=== PATIENT | male | born 1970 | race Caucasian/White ===

== ENCOUNTER 2021-02-26 14:43 | Outpatient (CLI) | payer MEDICAID, SELFPAY ==
[2021-02-26 15:29] LABS: Hematocrit 41.5 % (42.0-52.0); Mean Corpuscular HGB Conc 33.7 g/dL (30.0-36.0); Mean Platelet Volume 11.4 fL (7.4-10.4); Platelet Count 281 10^3/cmm (130-400); Red Blood Count 4.37 10^6/uL (4.1-5.3); Red Cell Distribution Width 12.9 % (12.1-15.1); White Blood Count 9.3 10^3/uL (4.0-10.0)
[2021-02-26 17:02] LABS: Absolute Neutrophil 6.1 10^3/cmm (1.4-6.5); Absolute Segmented Neutrophil 6.1 10/cmm (1.6-7.1); Eosinophils 1 %; Lymphocytes 24 %; Lymphocytes Absolute 2.6 10^3/cmm (1.2-3.4); Monocytes Absolute 0.5 10^3/cmm (0.1-0.6); Platelet Estimate Normal (Normal); Segmented Neutrophils 66 %; Total Cells Counted 100 (0-100)
== END 2021-02-26 14:44 | disposition home or self-care (01) ==
PROVIDERS: Visit Provider Nurse Practitioner
DX: R53.1 Weakness (principal); Z20.822 Contact with and (suspected) exposure to COVID-19
CPT/HCPCS: 36415; 85007; 85027; 87635

== ENCOUNTER 2023-04-17 11:25 | Emergency (ER) | payer SELFPAY ==
--- NOTE | 2023-04-17 11:31 | XRR_ITS ---
PROCEDURE INFORMATION: Exam: XR Right Knee Exam date and time: 04/17/2023 11:53 AM Age: 53 years old Clinical indication: Injury or trauma; Fall; Blunt trauma; Knee; Right TECHNIQUE: Imaging protocol: Radiologic exam of the right knee. Views: 3 views. COMPARISON: No relevant prior studies available. FINDINGS: Bones/joints: Normal. Soft tissues: Normal. XR/XR knee RT 3V* [id number] IMPRESSION: No acute findings.
--- NOTE | 2023-04-17 11:31 | CTR_ITS ---
PROCEDURE INFORMATION: Exam: CT Maxillofacial Without Contrast Exam date and time: 04/17/2023 12:12 PM Age: 53 years old Clinical indication: Injury or trauma; Fall; Blunt trauma (contusions or hematomas); Maxilla and lip/oral cavity; Both upper and lower TECHNIQUE: Imaging protocol: Computed tomography of the face without contrast. Radiation optimization: All CT scans at this facility use at least one of these dose optimization techniques: automated exposure control; mA and/or kV adjustment per patient size (includes targeted exams where dose is matched to clinical indication); or iterative reconstruction. REPORTING DATA: Count of CT and Cardiac NM exams in prior 12 months: This patient has received 0 known CTs and 0 known cardiac nuclear medicine studies in the 12 months prior to the current study. COMPARISON: No relevant prior studies available. RADIATION DOSE METRICS: Total DLP (mGy-cm): 623.98 FINDINGS: Orbital cavities: Orbits are normal. Globes are unremarkable. Bones/joints: Rightward deviation and a spur of the osseous nasal septum. Paranasal sinuses: Minimal qusm-[id number]-right maxillary sinus mucosal thickening. No air-fluid levels. Soft tissues: Soft tissue swelling at the anterior pre maxillary and pre mandibular soft tissues with focal air-filled defect at the left anterior pre mandibular soft tissues. Dental: Multiple bilateral carious and injured teeth notable for fractured tooth fragment at the level of the right maxillary central incisor. Multiple periapical lucencies. CT/CT facial bones wo con* [id number] IMPRESSION: Anterior mouth/lip traumatic soft tissue swelling with multiple bilateral carious and injured teeth with angulated fractured tooth fragment at the level of the right maxillary central incisor. Uncertain if multiple periapical lucencies are related to chronic dental disease or recent trauma.
[2023-04-17 11:32] VITALS: BP 125/85; PULSE 68; RESP 22; O2SAT 100; BMI 23.2
[2023-04-17 11:41] VITALS: BP 125/85; PULSE 67; RESP 25; O2SAT 100
[2023-04-17] MEDS: HYDROcodone-acetaminophen 5-325 mg Tablet 1 TAB PO (11:47)
[2023-04-17] MEDS: tetanus-dipt-pertussis 0.5 mL SDV IM (11:48)
[2023-04-17] MEDS: amoxicillin-clav 875-125 mg Tablet 1 TAB PO (11:48)
--- NOTE | 2023-04-17 13:11 | W.ED.DENTAL ---
HPI - Dental/Oral General: Chief complaint: Dental/Oral Stated complaint: tooth in lip Time Seen by Provider: 04/17/23 11:31 Source: patient Mode of arrival: ambulatory History of Present Illness: 53-year-old male presents emergency room after a fall. He did fall and tripped and jerez while carrying a saw he impaled his right frontal incisor into his upper lip. He is unsure of his last tetanus shot he denies any other injury. MD Complaint: tooth pain Onset (ago): minute(s) Duration: constant Relieving factors: nothing Exacerbating factors: nothing Context: history of dental caries and trauma (mechanism) Associated symptoms: Denies ear or mastoid pain Treatment prior to arrival: none Review of Systems ENMT: Denies: throat pain or ear or mastoid pain Card: Denies: chest pain, edema or dyspnea on exertion Resp: Denies: dyspnea GI: Denies: abdominal pain, nausea or vomiting PFSH ED PFSH: Social History Smoking and tobacco status: current every day smoker cigarettes Packs smoked per day: 1 Alcohol intake: current Alcohol intake frequency: 3 or more drinks per day Substance/Drug Use: current Substance/Drug use frequency: daily Physical Exam Const: ORIENTATION/CONSCIOUSNESS: Yes awake HENMT: COMMON NORMALS: normocephalic, atraumatic and hearing grossly normal bilaterally HEAD & SCALP: normocephalic and atraumatic OTHER: Right frontal incisors impaled on the lip through the mucosa it exited and then retracted back again through the red mucosa of the lip. Scant bleeding. Was able to manually disimpact the tooth from the lip the tooth is still loosely seated in the maxilla. Dilatation is poor. No active bleeding after removing the tooth from the lip. Resp: COMMON NORMALS: normal respiratory effort, No retractions, No use of accessory muscles and clear to auscultation bilaterally AUSCULTATION: clear to auscultation bilaterally Cardio: COMMON NORMALS: regular rate, regular rhythm and No murmurs present (Cardio) RATE: regular rate RHYTHM: regular rhythm GI: COMMON NORMALS: Soft to palpation and No hepatosplenomegaly present AUSCULTATION: Yes normoactive bowel sounds PALPATION: Yes Soft to palpation, No Tenderness to palpation present (GI), No Guarding due to palpation present (GI) and Yes No hepatosplenomegaly present Extremity: COMMON NORMALS: normal to inspection, capillary refill normal, no clubbing, cyanosis or edema, no calf tenderness and no pedal edema Skin: COMMON NORMALS: no rashes or lesions noted GENERAL SKIN EXAM: no rashes or lesions noted Course Vital Signs: Vital signs: Vital Signs Pulse Rate 67 04/17/23 11:41 Respiratory Rate 25 H 04/17/23 11:41 Blood Pressure 125/85 04/17/23 11:41 Pulse Oximetry 100 04/17/23 11:41 Oxygen Delivery Me thod Room Air 04/17/23 11:41 MDM - Dental/Oral Medical Decision Making Patient's tetanus updated is given a dose of Augmentin and also hydrocodone. Plan to discharge patient home on Augmentin while I was attending to another patient he decided to leave AMA. Nurses had tried to dissuade him from leaving where he was simply waiting on read on the facial CT at that point the plan was to discharge him home on at least 5 to 7-day oral Augmentin leave the wound open to drain. Patient preferred to leave AMA nursing staff was unable to convince him to stay and advised him he could return if needed further evaluation and would like further evaluation. We did try to make contact with him and wanted to call in a prescription for Augmentin [phone] twice daily for 5 at least 5 days. Numbers on file were not adequate we did leave message with his mother to have him call back if she is able to get a hold of him. If he does call back we will call in the Augmentin. Medical Records I reviewed the patient's medical records. Lab Data I reviewed the patient's lab results. Radiology Impressions Face CT 04/17/23 11:31 IMPRESSION: Anterior mouth/lip traumatic soft tissue swelling with multiple bilateral carious and injured teeth with angulated fractured tooth fragment at the level of the right maxillary central incisor. Uncertain if multiple periapical lucencies are related to chronic dental disease or recent trauma. Knee X-Ray 04/17/23 11:31 IMPRESSION: No acute findings. 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
--- NOTE | 2023-04-17 13:12 | PC.NURSE ---
Attempted to call pt in order to call in prescription of abx per MD. Number on file disconnected. Spoke with grandmother who stated she was unable to contact him. Requested if she hears from him to have him call the ER> Md aware.
== END 2023-04-17 12:52 | disposition left against medical advice (07) ==
PROVIDERS: Emergency Provider Family Medicine
DX: S01.511A Laceration without foreign body of lip, initial encounter (principal); S02.5XXA Fracture of tooth (traumatic), initial encounter for closed fracture; Z53.21 Procedure and treatment not carried out due to patient leaving prior to being seen by health care provider; F17.210 Nicotine dependence, cigarettes, uncomplicated; W27.0XXA Contact with workbench tool, initial encounter; Z23 Encounter for immunization
CPT/HCPCS: 70486; 73562; 90471; 90715; 99284

== ENCOUNTER 2023-11-26 16:28 | Emergency (ER) | payer OTHER, SELFPAY ==
[2023-11-26] VITALS (8 sets, daily range): BP systolic 120–209; BP diastolic 90–134; PULSE 48–76; RESP 16; TEMP 36.6; O2SAT 92–100; BMI 24.7
--- NOTE | 2023-11-26 17:42 | XRR_ITS ---
PROCEDURE INFORMATION: Exam: XR Chest Exam date and time: 11/26/2023 6:55 PM Age: 53 years old Clinical indication: Chest wall pain; Additional info: Le edema TECHNIQUE: Imaging protocol: Radiologic exam of the chest. Views: 1 view. COMPARISON: No relevant prior studies available. FINDINGS: Lungs: See Pleural spaces finding. Pleural spaces: Small right-sided pleural effusion. No focal consolidation. Heart/Mediastinum: Unremarkable. No cardiomegaly. Bones/joints: Unremarkable. XR/XR chest 1V portable [id number] IMPRESSION: Small right-sided pleural effusion. No focal consolidation.
[2023-11-26 19:51] LABS: Basophils % 0.5 %; Eosinophils # 0.2 10^3/uL (0.0-0.8); Eosinophils % 2.2 %; Hematocrit 41.2 % (37-53); Lymphocytes # 1.4 10^3/uL (0.8-4.8); Lymphocytes % 17.1 %; Mean Corpuscular HGB Conc 32.5 g/dL (30-55); Mean Corpuscular Volume 95.4 fl (82-101); Monocytes # 0.9 10^3/uL (0.2-0.9); Monocytes % 10.4 %; Neutrophils % 69.6 %; Nucleated Red Blood Cells % 0 %; Platelet Count 220 10^3/cmm (157-399); Red Blood Count 4.32 10^6/uL (3.85-5.65); Red Cell Distribution Width 12.6 % (12.1-15.1); White Blood Count 8.19 10^3/uL (3.29-11.43)
[2023-11-26 20:19] LABS: Alanine Aminotransferase 13 U/L (0-41); Albumin Level 3.9 g/dL (3.5-5.2); Alkaline Phosphatase 86 U/L (40-130); Anion Gap 15.4 (5-19); Aspartate Amino Transferase 28 U/L (0-40); Blood Urea Nitrogen 34 mg/dL (6-20); Calcium 8.7 mg/dL (8.5-10.5); Carbon Dioxide 24 mmol/L (22-29); Chloride 107 mmol/L (98-107); Creatinine Clr Calc Pharmacy 34.1422; Globulin 3.6 g/dL (1.3-4.6); Glomerular Filtration Rate 22.9 mL/min (90-130); Glucose 104 mg/dL (65-115); NT Pro B Type Natriuretic Pept 889 pg/mL (0-125); Osmolality Calculated 304 mOsm/kg (285-295); Potassium 3.4 mmol/L (3.5-5.1); Sodium 143 mmol/L (136-145); Total Bilirubin 0.3 mg/dL (0.15-1.2); Total Protein 7.5 g/dL (6.6-8.7)
[2023-11-26 20:34] LABS: Bacteria Urine TRACE /hpf; Bilirubin Urine Neg (Negative); Blood Urine Neg (Negative); Glucose Urine UA Norm (Normal); Ketones Urine Negative (Negative); Leukocyte Esterase Urine Negative (Negative); Nitrate Urine Negative (Negative); Protein Urine Neg (Negative); RBC Urine 0-4 /hpf (0-2); Squamous Epithelial Cell Urine 0-4 /hpf (0-5); Urine Appearance Clear (CLEAR); Urine Color Yellow (Yellow); Urobilinogen Urine Neg (Negative); WBC Urine 0-4 /hpf (0-5); pH Urine 5 (5-7)
--- NOTE | 2023-11-26 21:03 | ED_ITS ---
HPI - Abdominal Pain 2 General: Chief Complaint: Abdominal Pain Stated Complaint: legs swelling Time Seen by Provider: 11/26/23 20:44 History of Present Illness: Patient presents to the ER with complaints of lower abdominal pain, urinary retention type symptoms except when he sleeps then he is incontinent. And improving bilateral leg swelling. Review of Systems 2 General: Reports: 10 or more systems reviewed and unremarkable except in HPI and below PFSH ED 2 PFSH: Social History Smoking and tobacco/nicotine status: current every day tobacco/nicotine user cigarettes Packs smoked per day: 1 Alcohol intake: current Alcohol intake frequency: 3 or more drinks per day Substance/Drug Use: current Substance/Drug use frequency: daily Physical Exam 2 Const: COMMON NORMALS: no acute distress, average body habitus, patient oriented x3, no limitations, healthy appearing, alert and well nourished HENMT: COMMON NORMALS: normocephalic, atraumatic, hearing grossly normal bilaterally, external ears normal, Normal external nose present, moist oral mucous membranes and oropharynx normal HEAD & SCALP: normocephalic and atraumatic NOSE: Normal external nose present EXTERNAL EAR: Yes external ears normal Neck/C-Spine: COMMON NORMALS: no JVD Chest: COMMONS NORMALS: normal inspection of the chest and normal palpation of entire chest wall Resp: COMMON NORMALS: normal respiratory effort, No retractions, No use of accessory muscles and clear to auscultation bilaterally AUSCULTATION: clear to auscultation bilaterally Cardio: COMMON NORMALS: no JVD, regular rate, regular rhythm, S1 normal heart sound present, S2 normal heart sound present, No gallops present (Cardio), No clicks present (Cardio), No murmurs present (Cardio) and No rub (Cardio) R ATE: regular rate RHYTHM: regular rhythm HEART SOUNDS: S1 normal heart sound present and S2 normal heart sound present GI: COMMON NORMALS: Normal to inspection, nondistended, normoactive bowel sounds present, Soft to palpation, No hepatosplenomegaly present and no masses; negative for non-tender (Tender to palpate suprapubic region) PALPATION: Yes Soft to palpation and Yes No hepatosplenomegaly present Neuro: COMMON NORMALS: patient oriented x3 SENSORIUM/ORIENTATION: Yes alert Course 2 Vital Signs: Vital signs: Vital Signs Temperature 98 F 11/26/23 18:36 Pulse Rate 52 L 11/26/23 22:00 Respiratory Rate 16 11/26/23 22:00 Blood Pressure 200/134 11/26/23 22:00 Pulse Oximetry 99 11/26/23 22:00 Oxygen Delivery Me thod Room Air 11/26/23 22:00 MDM - Abdominal Pain Medical Decision Making Bladder scan revealed approximately 1000 cc postvoid residual Navas catheter was placed and eventually 3000 mL of urine came out. CBC was unremarkable, CMP showed elevated BUN/creatinine of 34 and 2.9, chest x-ray showed small right- sided pleural effusion, noncontrasted CT scan of the abdomen pelvis showed bilateral hydro nephrosis and hydroureter down to the bladder Differential Diagnosis Likely abdominal pain; Unlikely acute appendicitis, calculus of kidney, constipation, diverticulitis, endometriosis, gastroenteritis, pancreatitis or small bowel obstruction Medical Records I reviewed the patient's medical records. Lab Data I reviewed the patient's lab results. 11/26/23 19:42 11/26/23 19:42 Labs/Radiology: Radiology Impressions Chest X-Ray 11/26/23 17:42 IMPRESSION: Small right-sided pleural effusion. No focal consolidation. Abdomen/Pelvis CT 11/26/23 21:03 IMPRESSION: 1. Multiple calcified stones in the gallbladder. There is a Navas catheter in the bladder. The bladder is decompressed. There is circumferential bladder wall thickening. 2. Bilateral hydronephrosis and hydroureter down to the level of the bladder. 3. No bowel obstruction or inflammatory process associated with the bowel. 4. No free air or significant free fluid in the abdomen or pelvis. 5. No evidence of appendicitis. Laboratory Results WBC 8.19 10^3/uL (3.29-11.43) 11/26/23 19:42 RBC 4.32 10^6/uL (3.85-5.65) 11/26/23 19:42 Hgb 13.40 g/dL (11.27-16.99) 11/26/23 19: Hct 41.2 % (37-53) 11/26/23 19: MCV 95.4 fl (82-101) 11/26/23 19: MCH 31.0 pg (27-33) 11/26/23 19: MCHC 32.5 g/dL (30-55) 11/26/23 19:42 RDW 12.6 % (12.1-15.1) 11/26/23 19:42 Plt Count 220 10^3/cmm (157-399) 11/26/23 19:42 MPV 11.0 fL (7.4-10.4) H 11/26/23 19:42 Neut % (Auto) 69.6 % 11/26/23 19:42 Lymph % (Auto) 17.1 % 11/26/23 19:42 [place] % (Auto) 10.4 % 11/26/23 19:42 Eos % (Auto) 2.2 % 11/26/23 19:42 Baso % (Auto) 0.5 % 11/26/23 19:42 Neut # (Auto) 5.70 10^3/uL (1.8-7.7) 11/26/23 19:42 Lymph # (Auto) 1.4 10^3/uL (0.8-4.8) 11/26/23 19:42 [place] # (Auto) 0.9 10^3/uL (0.2-0.9) 11/26/23 19:42 Eos # (Auto) 0.2 10^3/uL (0.0-0.8) 11/26/23 19:42 Baso # (Auto) 0.0 10^3/uL (0.0-0.1) 11/26/23 19:42 Nucleated RBC % (auto) 0 % 11/26/23 19:42 Nucleated RBCs # 0.0 /100WBC 11/26/23 19:42 Sodium 143 mmol/L (136-145) 11/26/23 19:42 Potassium 3.4 mmol/L (3.5-5.1) L 11/26/23 19:42 Chloride 107 mmol/L (98-107) 11/26/23 19:42 Carbon Dioxide 24 mmol/L (22-29) 11/26/23 19:42 Anion Gap 15.4 (5-19) 11/26/23 19:42 BUN 34 mg/dL (6-20) H 11/26/23 19:42 Creatinine 2.9 mg/dL (0.7-1.2) H 11/26/23 19:42 GFR Calculation 22.9 mL/min (90-130) L 11/26/23 19:42 Glucose 104 mg/dL (65-115) 11/26/23 19:42 Calculated Osmolality 304 mOsm/kg (285-295) H 11/26/23 19:42 Calcium 8.7 mg/dL (8.5-10.5) 11/26/23 19:42 Total Bilirubin 0.3 mg/dL (0.15-1.2) 11/26/23 19:42 AST 28 U/L (0-40) 11/26/23 19:42 ALT 13 U/L (0-41) 11/26/23 19:42 Alkaline Phosphatase 86 U/L (40-130) 11/26/23 19:42 NT-Pro-B Natriuret Pep 889 pg/mL (0-125) H 11/26/23 19:42 Total Protein 7.5 g/dL (6.6-8.7) 11/26/23 19:42 Albumin 3.9 g/dL (3.5-5.2) 11/26/23 19:42 Globulin 3.6 g/dL (1.3-4.6) 11/26/23 19:42 Urine Color Yellow (Yellow) 11/26/23 18:50 Urine Appearance Clear (CLEAR) 11/26/23 18:50 Urine pH 5 (5-7) 11/26/23 18:50 Ur Specific [place] 1.000 (1.005-1.030) L 11/26/23 18:50 Urine Protein Neg (Negative) 11/26/23 18:50 Urine Glucose (UA) Norm (Normal) 11/26/23 18:50 Urine Ketones Negative (Negative) 11/26/23 18:50 Urine Blood Neg (Negative) 11/26/23 18:50 Urine Nitrate Negative (Negative) 11/26/23 18:50 Urine Bilirubin Neg (Negative) 11/26/23 18:50 Urine Urobilinogen Neg mg/dL (Negative) 11/26/23 18:50 Ur Leukocyte Esterase Negative (Negative) 11/26/23 18:50 Urine RBC 0-4 /hpf (0-2) H 11/26/23 18:50 Urine WBC 0-4 /hpf (0-5) H 11/26/23 18:50 Ur Squamous Epith Cells 0-4 /hpf (0-5) H 11/26/23 18:50 Amorphous Sediment Not Reportable 11/26/23 18:50 Urine Bacteria Trace /hpf (NONE) 11/26/23 18:50 All radiology interpretation(s) finalized by discharge Discharge Plan Discharge Patient Disposition: Home Clinical Impression: Acute urinary retention, Acute kidney injury Hypertension Qualifiers: Hypertension type: unspecified Qualified Code(s): I10 - Essential (primary) hypertension Condition: Stable Prescriptions: No Action No Known Home Medications Discharge Orders: Discharge ED (Routine); Ordered 11/26/23 Ordered By: Reuben Sam Patient Instructions: Navas Catheter Care, Acute Kidney Injury (DC), Urinary Retention in Men (ED), Hypertension (ED) Activity Restrictions/Additional Instructions: Your evaluation in ER showed you have a lot of retained urine in your bladder. This is acute urinary retention. The Navas catheter will drain your bladder and let everything rest. The bladder has backed up into your kidneys and irritated your kidneys so kidneys are functioning at a normal level I do believe this will get better once we keep them drain for several days. But you will need follow- up in 2 to 3 days for catheter removal as well as recheck on your lab work. 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
--- NOTE | 2023-11-26 21:03 | CTR_ITS ---
PROCEDURE INFORMATION: Exam: CT Abdomen And Pelvis Without Contrast Exam date and time: 11/26/2023 9:44 PM Age: 53 years old Clinical indication: Other: Urinary retention; Additional info: Urinary retention, acutely elevated CR, abd pain TECHNIQUE: Imaging protocol: Computed tomography of the abdomen and pelvis without contrast. Radiation optimization: All CT scans at this facility use at least one of these dose optimization techniques: automated exposure control; mA and/or kV adjustment per patient size (includes targeted exams where dose is matched to clinical indication); or iterative reconstruction. COMPARISON: CR XR chest 1V portable [id number] 11/26/2023 6:55 PM RADIATION DOSE METRICS: Total DLP (mGy-cm): 480.4 FINDINGS: Liver: Normal. No mass. Gallbladder and bile ducts: Multiple calcified stones in the gallbladder. There is a Navas catheter in the bladder. The bladder is decompressed. There is circumferential bladder wall thickening. Pancreas: Normal. No ductal dilation. Spleen: Normal. No splenomegaly. Adrenal glands: Normal. No mass. Kidneys and ureters: See Urinary bladder finding. Stomach and bowel: Unremarkable. No obstruction. No mucosal thickening. Appendix: No evidence of appendicitis. Intraperitoneal space: Unremarkable. No free air. No significant fluid collection. Vasculature: Unremarkable. No abdominal aortic aneurysm. Lymph nodes: Unremarkable. No enlarged lymph nodes. Urinary bladder: Bilateral hydronephrosis and hydroureter down to the level of the bladder. Reproductive: Unremarkable as visualized. Bones/joints: Unremarkable. No acute fracture. Soft tissues: Unremarkable. CT/CT abdomen pelvis wo con [id number] IMPRESSION: 1. Multiple calcified stones in the gallbladder. There is a Navas catheter in the bladder. The bladder is decompressed. There is circumferential bladder wall thickening. 2. Bilateral hydronephrosis and hydroureter down to the level of the bladder. 3. No bowel obstruction or inflammatory process associated with the bowel. 4. No free air or significant free fluid in the abdomen or pelvis. 5. No evidence of appendicitis.
[2023-11-26] MEDS: cloNIDine 0.1 mg Tablet 0.100000000000000006 MG PO (21:15)
[2023-11-26] MEDS: HYDROcodone-acetaminophen 5-325 mg Tablet 1 TAB PO (22:18)
[2023-11-26] MEDS: cyclobenzaprine 10 mg Tablet 5 MG PO (22:18)
[2023-11-26] MEDS: cloNIDine 0.1 mg Tablet 0.200000000000000011 MG PO (23:00)
== END 2023-11-27 00:09 | disposition home or self-care (01) ==
PROVIDERS: Emergency Medicine; Physician Assistant; Emergency Provider Emergency Medicine
DX: R33.9 Retention of urine, unspecified (principal); N17.9 Acute kidney failure, unspecified; I10 Essential (primary) hypertension; F17.210 Nicotine dependence, cigarettes, uncomplicated
CPT/HCPCS: 36415; 51702; 51798; 71045; 74176; 80053; 81001; 83880; 85025; 99284

== ENCOUNTER → 2023-12-01 11:15 | Outpatient (BNVA) | payer OTHER, SELFPAY | PROVIDERS: Visit Provider Family Medicine Adult Medicine | DX: R33.8 Other retention of urine (principal); N17.9 Acute kidney failure, unspecified; I10 Essential (primary) hypertension; N40.1 Benign prostatic hyperplasia with lower urinary tract symptoms; N13.8 Other obstructive and reflux uropathy | CPT/HCPCS: 80053; 84443; G0103 ==

== ENCOUNTER → 2024-06-17 15:52 | Outpatient (BNVA) | payer OTHER, SELFPAY | PROVIDERS: Visit Provider Emergency Medicine | DX: R32 Unspecified urinary incontinence (principal); R39.9 Unspecified symptoms and signs involving the genitourinary system | CPT/HCPCS: 81000; 87086 ==

== ENCOUNTER 2024-11-10 18:10 | Emergency (ER) | payer OTHER, SELFPAY ==
[2024-11-10 18:20] VITALS: BP 172/88; PULSE 74; RESP 16; TEMP 36.4; O2SAT 100; BMI 24.4
--- NOTE | 2024-11-10 18:30 | CTR_ITS ---
PROCEDURE INFORMATION: Exam: CT Abdomen And Pelvis Without Contrast Exam date and time: 11/10/2024 6:58 PM Age: 54 years old Clinical indication: Abnormal findings; Abnormal lab test; Abnormal kidney function lab tests; Other: Urinary retention; C/O of dysuria with retention. Acute renal failure with creat of 6.4. TECHNIQUE: Imaging protocol: Computed tomography of the abdomen and pelvis without contrast. Radiation optimization: All CT scans at this facility use at least one of these dose optimization techniques: automated exposure control; mA and/or kV adjustment per patient size (includes targeted exams where dose is matched to clinical indication); or iterative reconstruction. COMPARISON: CT abdomen pelvis wo con [id number] 11/26/2023 9:44 PM RADIATION DOSE METRICS: Total DLP (mGy-cm): 473.25 FINDINGS: Lungs: Stable right posterior lower lobe scarring. Heart: Heart size is within normal limits. There is no pericardial effusion or pericardial thickening. Liver: The liver is normal. No hepatic masses are identified. Gallbladder and biliary ducts: Gallstones are identified within the gallbladder. There is no gallbladder wall thickening or pericholecystic inflammatory change. Pancreas: The pancreas is normal. Spleen: The spleen is normal. Adrenal glands: The adrenal glands are normal. Kidneys and ureters: Severe bilateral hydroureteronephrosis. Stomach and bowel: Mild colonic diverticulosis without diverticulitis. There is no large or small bowel obstruction. There is no evidence of bowel wall thickening. Appendix: A normal appendix is identified. Intraperitoneal space: No inflammatory changes are identified. There is no free fluid or fluid collection seen. There is no pneumoperitoneum. Vasculature: Atherosclerotic calcifications of the aorta are present. No aneurysm is identified. Lymph nodes: No enlarged lymph nodes are identified. Urinary bladder: Markedly distended urinary bladder with large bladder diverticula. Diffuse bladder wall thickening which appears to be related to smooth muscle hypertrophy. Reproductive: Moderate prostatomegaly. Bones/joints: No acute osseous abnormalities are seen. Soft tissues: There is a small left inguinal hernia containing only fat. There is a moderate periumbilical hernia containing only fat. CT/CT kidney stone [id number] IMPRESSION: 1. Severe bilateral hydroureteronephrosis which appears to be secondary to marked distension of the urinary bladder. 2. Other nonemergent findings above.
--- NOTE | 2024-11-10 18:30 | ED_ITS ---
HPI - Recheck/Abnormal Lab/Rx 2 General: Chief Complaint: Recheck/Abnormal Lab/Rx Stated Complaint: Dr Jamison refural Kidney Failure Time Seen by Provider: 11/10/24 18:27 Source: patient Mode of arrival: ambulatory Limitations: no limitations History of Present Illness: 54-year-old male he states he has a hist ory of enlarged prostate states been out of his Flomax for the last weeks he has been having a hard time urinating states he went to see his PCP this morning to get her refill states and ran labs and then told him that his creatinine was elevated, the ER he states he has had no symptoms he has been feeling fine states has been able to urinate since he started his Flomax back today. Has no other complaints this time Related Data Previous Rx's ?Medication ?Instructions ?Recorded amlodipine 5 mg tablet 5 mg PO DAILY hypertension # 90 tabs 11/10/24 tamsulosin 0.4 mg capsule 0.4 mg PO DAILY #90 caps Allergies Allergy/AdvReac Type Severity Reaction Status Date / Time No Known Allergies Allergy Verified 11/10/24 18:24 Review of Systems 2 Const: Denies: fever(s), chills, body aches or change in appetite ENMT: Denies: throat pain or dental pain Card: Denies: chest pain Resp: Denies: dyspnea GI: Denies: abdominal pain, nausea, vomiting or diarrhea : Reports: difficulty urinating Musc: Denies: neck pain or back pain Skin/Breast: Denies: rash Neuro: Denies: headache(s) PFSH ED 2 PFSH: Medical History Bladder wall thickening seen on CT 12/[address] 2023 Nicotine dependence, cigarettes, with other nicotine-induced disorders declined LDCT 11.10.24 Acute kidney injury Creatinine was 2.9 with GFR of 22 on 11/26/2023 and had decreased to a creatinine of 1.3 with a GFR of 58 on 12/01/2023 Hypertension Acute urinary retention Urinary Navas placement with 3000 cc return on 11/26/2023 BPH w urinary obs/LUTS Surgical History No pertinent past surgical history Family History Father No problems noted. 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 Physical Exam 2 Const: COMMON NORMALS: no acute distress, patient oriented x3 and healthy appearing HENMT: COMMON NORMALS: normocephalic and atraumatic HEAD & SCALP: n ormocephalic and atraumatic Eye: COMMON NORMALS: conjunctivae normal CONJUNCTIVA: Yes conjunctivae normal Neck/C-Spine: COMMON NORMALS: full ROM and supple Chest: COMMONS NORMALS: normal inspection of the chest Resp: COMMON NORMALS: normal respiratory effort Cardio: COMMON NORMALS: regular rate, regular rhythm and No murmurs present (Cardio) RATE: regular rate RHYTHM: regular rhythm GI: COMMON NORMALS: Normal to inspection, nondistended, normoactive bowel sounds present, Soft to palpation, non-tender and no masses PALPATION: Yes Soft to palpation Extremity: COMMON NORMALS: normal to inspection and full ROM Neuro: COMMON NORMALS: patient oriented x3, moves all extremities and no focal motor deficits Psych: COMMON NORMALS: mental status grossly normal, Normal thought process present and cooperative THOUGHT PROCESS: Normal thought process present Skin: COMMON NORMALS: no rashes or lesions noted and no wounds GENERAL SKIN EXAM: no rashes or lesions noted Course 2 Vital Signs: Vital signs: Vital Signs Temperature 97.5 F L 11/10/24 18:20 Pulse Rate 74 11/10/24 18:20 Respiratory Rate 16 11/10/24 18:20 Blood Pressure 172/88 11/10/24 18:20 Pulse Oximetry 98 11/10/24 19:02 Oxygen Delivery Me thod Room Air 11/10/24 19:02 MDM - Recheck/Abnormal Lab/Rx Medical Decision Making Patient presents here with acute kidney injury likely from a urinary retention. Patient is adamant that he is urinating a lot since he started his Flomax hide highly recommended admission and a Navas patient refused he states he had Navas's in the past they cause dysuria and he does not want a Navas at this time he states he wants to continue his Flomax and see if that improves his urine output and his kidney function. I informed him he could going to for renal failure he understands the risk he did sign out AGAINST MEDICAL ADVICE I did inform if he changes his mind or worsens he is to return he understands and agrees Lab Data I reviewed the patient's lab results. 11/10/24 18:50 11/10/24 18:50 Radiology Impressions Abdomen/Pelvis CT 11/10/24 18:30 IMPRESSION: 1. Severe bilateral hydroureteronephrosis which appears to be secondary to marked distension of the urinary bladder. 2. Other nonemergent findings above. Laboratory Results WBC 7.46 10^3/uL (3.29-11.43) 11/10/24 18:50 RBC 3.21 10^6/uL (3.85-5.65) L 11/10/24 18:50 Hgb 9.40 g/dL (11.27-16.99) L 11/10/24 18:50 Hct 29.6 % (37-53) L 11/10/24 18:50 MCV 92.2 fl (82-101) 11/10/24 18:50 MCH 29.3 pg (27-33) 11/10/24 18:50 MCHC 31.8 g/dL (30-55) 11/10/24 18:50 RDW 14.0 % (12.1-15.1) 11/10/24 18:50 Plt Count 280 10^3/cmm (157-399) 11/10/24 18:50 MPV 10.8 fL (7.4-10.4) H 11/10/24 18:50 Neut % (Auto) 69.8 % 11/10/24 18:50 Lymph % (Auto) 18.9 % 11/10/24 18:50 [place] % (Auto) 8.2 % 11/10/24 18:50 Eos % (Auto) 2.1 % 11/10/24 18:50 Baso % (Auto) 0.7 % 11/10/24 18:50 Neut # (Auto) 5.21 10^3/uL (1.8-7.7) 11/10/24 18:50 Lymph # (Auto) 1.4 10^3/uL (0.8-4.8) 11/10/24 18:50 [place] # (Auto) 0.6 10^3/uL (0.2-0.9) 11/10/24 18:50 Eos # (Auto) 0.2 10^3/uL (0.0-0.8) 11/10/24 18:50 Baso # (Auto) 0.1 10^3/uL (0.0-0.1) 11/10/24 18:50 Nucleated RBC % (auto) 0 % 11/10/24 18:50 Nucleated RBCs # 0.0 /100WBC 11/10/24 18:50 Sodium 136 mmol/L (136-145) 11/10/24 18:50 Potassium 5.3 mmol/L (3.5-5.1) H 11/10/24 18:50 Chloride 107 mmol/L (98-107) 11/10/24 18:50 Carbon Dioxide 13 mmol/L (22-29) L 11/10/24 18:50 Anion Gap 21.3 (5-19) H 11/10/24 18:50 BUN 91 mg/dL (6-20) H* 11/10/24 18:50 Creatinine 6.2 mg/dL (0.7-1.2) H* 11/10/24 18:50 GFR Calculation 9.5 mL/min (90-130) L 11/10/24 18:50 Glucose 94 mg/dL (65-115) 11/10/24 18:50 Calculated Osmolality 310 mOsm/kg (285-295) H 11/10/24 18:50 Calcium 8.5 mg/dL (8.5-10.5) 11/10/24 18:50 Total Bilirubin 0.2 mg/dL (0.15-1.2) 11/10/24 18:50 AST 29 U/L (0-40) 11/10/24 18:50 ALT 16 U/L (0-41) 11/10/24 18:50 Alkaline Phosphatase 76 U/L (40-130) 11/10/24 18:50 Total Protein 7.1 g/dL (6.6-8.7) 11/10/24 18:50 Albumin 3.4 g/dL (3.5-5.2) L 11/10/24 18:50 Globulin 3.7 g/dL (1.3-4.6) 11/10/24 18:50 Lipase 88 U/L (13-60) H 11/10/24 18:50 All radiology interpretation(s) finalized by discharge Discharge Plan Discharge Patient Disposition: Left Against Medical Advice Clinical Impression: Acute kidney injury, Acute urinary retention Condition: Stable Prescriptions: No Action tamsulosin 0.4 mg capsule 0.4 mg PO DAILY Qty: 90 3RF amlodipine 5 mg tablet 5 mg PO DAILY Qty: 90 0RF Referrals: Kaylen Jamison MD [Primary Care Provider] - 4-7 days Discharge Diet: Advance as tolerated Discharge Activity: Resume usual activity Print Language: Mongolian Coding Level of Care Code ED Canceling And Cutting Control Clerk for Fili Rawls
[2024-11-10 19:02] VITALS: O2SAT 98
[2024-11-10] MEDS: sodium chloride 0.9% 1,000 ML 999 ML IV (19:02)
[2024-11-10 19:10] LABS: Basophils # 0.1 10^3/uL (0.0-0.1); Basophils % 0.7 %; Eosinophils # 0.2 10^3/uL (0.0-0.8); Eosinophils % 2.1 %; Hematocrit 29.6 % (37-53); Lymphocytes # 1.4 10^3/uL (0.8-4.8); Lymphocytes % 18.9 %; Mean Corpuscular HGB Conc 31.8 g/dL (30-55); Mean Corpuscular Hemoglobin 29.3 pg (27-33); Mean Corpuscular Volume 92.2 fl (82-101); Mean Platelet Volume 10.8 fL (7.4-10.4); Monocytes # 0.6 10^3/uL (0.2-0.9); Monocytes % 8.2 %; Neutrophils # 5.21 10^3/uL (1.8-7.7); Neutrophils % 69.8 %; Nucleated Red Blood Cells % 0 %; Platelet Count 280 10^3/cmm (157-399); Red Blood Count 3.21 10^6/uL (3.85-5.65); White Blood Count 7.46 10^3/uL (3.29-11.43)
--- NOTE | 2024-11-10 19:15 | PC.NURSE ---
When this nurse went to place a Navas catheter, patient refused, stating No, I will not have a Navas. That thing ruined my life. This nurse attempted to educate the patient on the reason and importance of catheter placement, however patient once again patient declined. Dr Barahona notified of patient's current refusal of catheter placement.
[2024-11-10 19:22] LABS: Alanine Aminotransferase 16 U/L (0-41); Albumin Level 3.4 g/dL (3.5-5.2); Alkaline Phosphatase 76 U/L (40-130); Calcium 8.5 mg/dL (8.5-10.5); Carbon Dioxide 13 mmol/L (22-29); Chloride 107 mmol/L (98-107); Creatinine Clr Calc Pharmacy 15.2617; Globulin 3.7 g/dL (1.3-4.6); Glomerular Filtration Rate 9.5 mL/min (90-130); Glucose 94 mg/dL (65-115); Lipase 88 U/L (13-60); Osmolality Calculated 310 mOsm/kg (285-295); Sodium 136 mmol/L (136-145); Total Bilirubin 0.2 mg/dL (0.15-1.2); Total Protein 7.1 g/dL (6.6-8.7)
[2024-11-10 19:25] LABS: Anion Gap 21.3 (5-19); Aspartate Amino Transferase 29 U/L (0-40); Potassium 5.3 mmol/L (3.5-5.1)
[2024-11-10 19:32] LABS: Blood Urea Nitrogen 91 mg/dL (6-20)
== END 2024-11-10 19:51 | disposition left against medical advice (07) ==
PROVIDERS: Emergency Provider Emergency Medicine; PCP Family Medicine
DX: R33.9 Retention of urine, unspecified (principal); N17.9 Acute kidney failure, unspecified; I10 Essential (primary) hypertension
CPT/HCPCS: 36415; 74176; 80053; 81000; 83690; 84443; 85025; 87086; 99284; G0103; J7030

== ENCOUNTER 2025-05-19 10:38 | Inpatient (IN) | payer OTHER, SELFPAY ==
[2025-05-19] VITALS (125 sets, daily range): BP systolic 136–184; BP diastolic 95–133; PULSE 84–108; RESP 8–26; TEMP 36.3–36.8; O2SAT 85–100; BMI 24.4; BMI 22.5
--- OUTSIDE RECORDS SUMMARY | 2025-05-19 10:44 | XMS_ITS | Clinical Summary ---
Author Organization [facility] Address [address] 

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
--- OUTSIDE RECORDS SUMMARY | 2025-05-19 10:44 | XMS_ITS | Patient Health Record ---
Author Organization [facility] Address [address] [place] [address] Care Team Providers Care Ophthalmic Tech Name Role Phone Amari Barriga Unavailable [phone] Reason For Referral No Information Medications Medication SIG (Take, Route, Frequency, Duration) Notes Start Date End Date Status Ranitidine HCl 150 MG Capsule Take 1 capsule(s) by mouth bid Oral; Duration: 30 Ranitidine 150mg Capsules Take 1 capsule(s) by mouth bid 05/24/2013 Active Immunizations Vaccine Route Administration Date Status Comme nts Flu vaccine no Preserv 3 and > IM Intramuscular 05/24/2013 Administered Social History Social History Additional Details Category Social Info Options Details zzMigrated Social History Migrated Social History Advance Directive: Current and Verified Signed on 05/24/2013 Organ Donation: Patient refuses Organ Donation Denied Portal User Patient declined portal account Highest Level of Education High School Education (9-12) Completed 11th grade only Problems Problem Type SNOMED Code ICD Code Onset Dates Problem Status W/U Status Risk Notes Problem Heartburn (31286266) Heartburn (787.1) 05/24/20 13 Problem resolved confirmed [id number] 11- Problem Shoulder pain (39825697) Shoulder pain (719.41) 05/01/20 16 Problem resolved confirmed [id number] 11- Problem 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) Other abnormal findings on blood examination (790.99) 05/15/20 16 Problem resolved confirmed [id number] 11- Problem Insomnia (258097238) Insomnia (307.41) 05/01/20 16 Problem resolved confirmed [id number] 11- Problem Needs influenza immunization (492858874) Vaccination against other viral diseases, Influenza (V04.81) 05/24/20 13 Problem resolved confirmed [id number] 11- Problem Chronic hepatitis C (549138244) Chronic hepatitis C (070.54) 05/01/20 16 Problem resolved confirmed [facility] [id number] 11- Plan Of Treatment No Information Medical (General) History Surgical History Surgery Date(Month/Year) Other Surgeries:Collapsed Lung-2005;
--- NOTE | 2025-05-19 10:46 | ECG_ITS ---
[facility]: 2025-05-19 Pat Name: Chester Perez Department: Room: Gender: Male Web Developer: : 1970 Requested By: Tariq Ledbetter Order Number: [id number] Reading MD: LISSA KOVACS Measurements Intervals [place] Rate: 84 P: 64 AK: 173 QRS: 69 QRSD: 100 T: 81 QT: 344 QTc: 409 Interpretive Statements SINUS RHYTHM No previous ECG available for comparison Electronically Signed On 05-20-2025 22:26:12 CDT by LISSA KOVACS [email or web address]
[2025-05-19 11:21] LABS: Hematocrit 28.2 % (37-53); Hemoglobin 9.20 g/dL (11.27-16.99); Mean Corpuscular HGB Conc 32.6 g/dL (30-55); Mean Corpuscular Hemoglobin 27.5 pg (27-33); Mean Corpuscular Volume 84.4 fl (82-101); Nucleated Red Blood Cells % 0 %; Platelet Count 171 10^3/cmm (157-399); Red Blood Count 3.34 10^6/uL (3.85-5.65); White Blood Count 13.13 10^3/uL (3.29-11.43)
--- NOTE | 2025-05-19 11:32 | PC.NURSE ---
educated pt on need for urine sample again, pt states unable and will leave ER if trying to do straight catheter.
[2025-05-19 11:38] LABS: Alanine Aminotransferase 10 U/L (0-41); Albumin Level 3.7 g/dL (3.5-5.2); Alkaline Phosphatase 107 U/L (40-130); Anion Gap 27.3 (5-19); Aspartate Amino Transferase 10 U/L (0-40); Calcium 9.5 mg/dL (8.5-10.5); Carbon Dioxide 14 mmol/L (22-29); Chloride 93 mmol/L (98-107); Creatinine Clr Calc Pharmacy 8.4254; Globulin 4.1 g/dL (1.3-4.6); Glucose 90 mg/dL (65-115); Lipase 74 U/L (13-60); Potassium 5.3 mmol/L (3.5-5.1); Sodium 129 mmol/L (136-145); Total Protein 7.8 g/dL (6.6-8.7)
[2025-05-19 11:39] LABS: Lactic Sepsis W/Reflex 0.6 mmol/L (0.5-2.2)
[2025-05-19 11:56] LABS: Glucose Urine UA Negative (Normal); Nitrate Urine Negative (Negative); Specific Gravity, Urine 1.009 (1.005-1.030)
[2025-05-19 12:01] LABS: Osmolality Calculated 317 mOsm/kg (285-295)
[2025-05-19 12:01] LABS: Add Urine Microscopic? YES
[2025-05-19 12:02] LABS: Blood Urea Nitrogen 151 mg/dL (6-20)
--- NOTE | 2025-05-19 12:14 | PC.NURSE ---
post-void bladder scan >2085mL, pt adamantly refusing catheter. ED provider notified
--- NOTE | 2025-05-19 12:45 | PC.NURSE ---
after davis being placed 1200mL out, clamped at this time. Dr. Sommer notified; verbal order to unclamp @[id number]
--- NOTE | 2025-05-19 13:10 | W.ED.ABDPA2 ---
HPI - Abdominal Pain General: Chief Complaint: Abdominal Pain Stated Complaint: N/V SOB R side pain Time Seen by Provider: 05/19/25 10:53 History of Present Illness: 55-year-old male presents emergency room complaining of lower abdominal pain. He has also had incontinence which he blames on previously having had a Navas for bladder outlet obstruction he has chronic kidney disease. He is having right sided abdominal pain and some vomiting. He denies any hematuria. No chest pain no shortness of breath Associated Symptoms: Denies chills, dysuria and fever(s) Related Data Home Medications ?Medication ?Instructions ?Recorded ?Confirmed aspirin 81 mg tablet,delayed 81 mg PO DAILY 05/19/25 05/19/25 release (Delmy Low Dose Aspirin) ibuprofen 200 mg tablet (Advil) 400 mg PO Q6H PRN Fever Or Pain 05/19/25 05/19/25 Previous Rx's ?Medication ?Instructions ?Recorded tamsulosin 0.4 mg capsule 0.4 mg PO DAILY #90 caps 11/10/24 amlodipine 5 mg tablet 5 mg PO DAILY hypertension #90 tabs 02/01/25 Allergies Allergy/AdvReac Type Severity Reaction Status Date / Time No Known Allergies Allergy Verified 11/10/24 18:24 Review of Systems Const: Denies: fever(s) or chills Card: Denies: chest pain Resp: Denies: dyspnea GI: Denies: abdominal pain : Denies: dysuria, urinary frequency or urinary urgency Musc: Reports: back pain; Denies: neck pain Skin/Breast: Denies: rash [facility] ED PFSH: Medical History Bladder wall thickening seen on CT 12/16; gone on 12/[address] 2023 Nicotine dependence, cigarettes, with other nicotine-induced disorders declined LDCT 11.10.24 Acute kidney injury Creatinine was 2.9 with GFR of 22 on 11/26/2023 and had decreased to a creatinine of 1.3 with a GFR of 58 on 12/01/2023 Hypertension Acute urinary retention Urinary Navas placement with 3000 cc return on 11/26/2023 BPH w urinary obs/LUTS Surgical History No pertinent past surgical history Family History Father No problems noted. 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 Physical Exam Const: GENERAL APPEARANCE: cooperative ORIENTATION/CONSCIOUSNESS: Yes awake, Yes oriented to person, Yes oriented to place and Yes oriented to time HENMT: COMMON NORMALS: normocephalic, atraumatic and hearing grossly normal bilaterally HEAD & SCALP: normocephalic and atraumatic Resp: COMMON NORMALS: normal respiratory effort, No retractions, No use of accessory muscles and clear to auscultation bilaterally AUSCULTATION: clear to auscultation bilaterally Cardio: COMMON NORMALS: regular rate, regular rhythm and No murmurs present (Cardio) RATE: regular rate RHYTHM: regular rhythm GI: COMMON NORMALS: Soft to palpation and No hepatosplenomegaly present AUSCULTATION: Yes normoactive bowel sounds PALPATION: Yes Soft to palpation, No Tenderness to palpation present (GI), No Guarding due to palpation present (GI) and Yes No hepatosplenomegaly present OTHER: Bladder palpable to the level of the umbilicus Extremity: COMMON NORMALS: normal to inspection, capillary refill normal, no clubbing, cyanosis or edema, no calf tenderness and no pedal edema Neuro: SENSORIUM/ORIENTATION: Yes oriented to person, Yes oriented to place and Yes oriented to time Skin: COMMON NORMALS: no rashes or lesions noted GENERAL SKIN EXAM: no rashes or lesions noted Course Vital Signs: Vital signs: Vital Signs Temperature 98.6 F 05/20/25 11:21 Pulse Rate 90 05/20/25 11:21 Respiratory Rate 14 05/20/25 11:21 Blood Pressure 112/76 05/20/25 11:21 Pulse Oximetry 98 05/20/25 11:21 Oxygen Delivery Me thod Room Air 05/20/25 10:10 MDM - Abdominal Pain Medical Decision Making Initial evaluation patient has obvious bladder outlet obstruction his bladder palpable above the level of his umbilicus he had immediate relief of symptoms after placement of Navas and over 1000 mL of urine output almost immediately. No cecilia hematuria. Discussed with hospitalist will admit consult nephrology. Patient given IV fluids. Initial UA does not show any signs of infection. Nephrology consulted orders written for admission. Patient has significant relief of abdominal discomfort after placement of Navas Medical Records I reviewed the patient's medical records. Lab Data I reviewed the patient's lab results. 05/20/25 04:29 05/20/25 10:10 Labs/Radiology: Radiology Impressions Renal Ultrasound 05/19/25 16:51 IMPRESSION: 1. Severe bilateral hydroureteronephrosis. 2. Urinary bladder wall is thickened and irregular with trabeculations. There is echogenic debris in the bladder lumen which may represent blood products, debris or infection related sediment. 3. There is a tubular, rounded structure along the wall of the large bladder diverticulum likely represents the distal ureter inserting into the diverticulum. 3. Prostate volume of 34 cc, mildly enlarged. Abdomen/Pelvis CT 05/19/25 19:52 IMPRESSION: 1. Severe bilateral hydroureteronephrosis. Findings are concerning for bladder outlet obstruction. 2. Large amount of blood products in the bladder. Recommend correlation with results of cystoscopy to exclude underlying lesion. 3. Urinary bladder wall is thickened with a irregular trabeculations and large diverticula. Findings are suggestive of chronic bladder outlet obstruction. 4. A Navas catheter is positioned in the bladder, however the bladder is not fully decompressed, likely reflecting Navas dysfunction in the setting of urinary bladder blood products. Laboratory Results WBC 13.13 10^3/uL (3.29-11.43) H 05/19/25 11:12 RBC 3.34 10^6/uL (3.85-5.65) L 05/19/25 11:12 Hgb 9.20 g/dL (11.27-16.99) L 05/19/25 11:12 Hct 28.2 % (37-53) L 05/19/25 11:12 MCV 84.4 fl (82-101) 05/19/25 11:12 MCH 27.5 pg (27-33) 05/19/25 11:12 MCHC 32.6 g/dL (30-55) 05/19/25 11:12 RDW 16.8 % (12.1-15.1) H 05/19/25 11:12 Plt Count 171 10^3/cmm (157-399) 05/19/25 11:12 MPV 9.7 fL (7.4-10.4) 05/19/25 11:12 Neut % (Auto) 85.8 % 05/19/25 11:12 Lymph % (Auto) 7.8 % 05/19/25 11:12 [place] % (Auto) 5.6 % 05/19/25 11:12 Eos % (Auto) 0.2 % 05/19/25 11:12 Baso % (Auto) 0.3 % 05/19/25 11:12 Neut # (Auto) 11.26 10^3/uL (1.8-7.7) H 05/19/25 11:12 Lymph # (Auto) 1.0 10^3/uL (0.8-4.8) 05/19/25 11:12 [place] # (Auto) 0.7 10^3/uL (0.2-0.9) 05/19/25 11:12 Eos # (Auto) 0.0 10^3/uL (0.0-0.8) 05/19/25 11:12 Baso # (Auto) 0.0 10^3/uL (0.0-0.1) 05/19/25 11:12 Nucleated RBC % (auto) 0 % 05/19/25 11:12 Nucleated RBCs # 0.0 /100WBC 05/19/25 11:12 Sodium 129 mmol/L (136-145) L 05/19/25 11:12 Potassium 5.3 mmol/L (3.5-5.1) H 05/19/25 11:12 Chloride 93 mmol/L (98-107) L 05/19/25 11:12 Carbon Dioxide 14 mmol/L (22-29) L 05/19/25 11:12 Anion Gap 27.3 (5-19) H 05/19/25 11:12 BUN 151 mg/dL (6-20) H* D 05/19/25 11:12 Creatinine 11.1 mg/dL (0.7-1.2) H* 05/19/25 11:12 GFR Calculation 4.8 mL/min (90-130) L 05/19/25 11:12 Glucose 90 mg/dL (65-115) 05/19/25 11:12 Calculated Osmolality 317 mOsm/kg (285-295) H 05/19/25 11:12 Lactic Acid 0.6 mmol/L (0.5-2.2) 05/19/25 11:12 Calcium 9.5 mg/dL (8.5-10.5) 05/19/25 11:12 Total Bilirubin 0.4 mg/dL (0.15-1.2) 05/19/25 11:12 AST 10 U/L (0-40) 05/19/25 11:12 ALT 10 U/L (0-41) 05/19/25 11:12 Alkaline Phosphatase 107 U/L (40-130) 05/19/25 11:12 Total Protein 7.8 g/dL (6.6-8.7) 05/19/25 11:12 Albumin 3.7 g/dL (3.5-5.2) 05/19/25 11:12 Globulin 4.1 g/dL (1.3-4.6) 05/19/25 11:12 Lipase 74 U/L (13-60) H 05/19/25 11:12 Urine Color Yellow (Yellow) 05/19/25 11:48 Urine Appearance Clear (CLEAR) 05/19/25 11:48 Urine pH 6.0 (5-7) 05/19/25 11:48 Ur Specific [place] 1.009 (1.005-1.030) 05/19/25 11:48 Urine Protein Trace (Negative) A 05/19/25 11:48 Urine Glucose (UA) Negative (Normal) 05/19/25 11:48 Urine Ketones Negative (Negative) 05/19/25 11:48 Urine Blood Negative (Negative) 05/19/25 11:48 Urine Nitrate Negative (Negative) 05/19/25 11:48 Urine Bilirubin Negative (Negative) 05/19/25 11:48 Urine Urobilinogen 0.2 mg/dL (Negative) 05/19/25 11:48 Ur Leukocyte Esterase Negative (Negative) 05/19/25 11:48 Urine RBC 0-2 /hpf (0-2) 05/19/25 11:48 Urine WBC 0-5 /hpf (0-5) 05/19/25 11:48 Ur Squamous Epith Cells 0-5 /hpf (0-5) 05/19/25 11:48 Amorphous Sediment Not Reportable 05/19/25 11:48 Urine Bacteria None seen /hpf (NONE) 05/19/25 11:48 Hyaline Casts 0-4 /lpf H 05/19/25 11:48 All radiology interpretation(s) finalized by discharge Discharge Plan Discharge Patient Disposition: Admitted As Inpatient Admit Provider: Rico Rapp Clinical Impression: Acute kidney injury, BPH w urinary obs/LUTS Condition: Stable Discharge Diet: Advance as tolerated and Usual diet Discharge Activity: Resume usual activity Coding Level of Care Code ED Bond Clerk for Fili Rawls
--- NOTE | 2025-05-19 13:33 | P.HP_ITS ---
Providers/Chief Complaint 2 Admitting Physician: Rico Rapp MD Primary Care Provider: Kaylen Dowd MD Chief Complaint: N/V SOB R side pain History of Present Illness As per the previous notes and the patient Chester Perez is a 55 year old male with past medical history of enlarged prostate leading to intermittent bladder outlet obstruction requiring multiple encounters of Navas's admission KIMBERLEY postobstructive in nature, came to ER with difficulty in urination and found to have a large bladder secondary to bladder outlet obstruction. The patient underwent Navas's insertion in the ER producing more than a liter of urine Which was mild pinkish in color. The patient did not report any dysuria or burning micturition. No fever or chills. No abdominal pain shortness of breath or any chest pain or chest pressure or dizziness. Rest of the review of system is unremarkable. Of note, patient had multiple encounters of urinary obstructive symptoms and requiring intermittent Navas's insertion. The chart was reviewed and showed CT abdomen and pelvis imaging studies that were done however no comment on the prostate was made apart from bilateral hydronephrosis of the kidneys. After review of his chart thoroughly I decided to further have urology input which can further avoid such visits and discomfort to the patient so that patient can have postdischarge care with a urologist and a proper plan for future optimization of his condition. Dr. Mtz was consulted from [facility] and advised to keep the Navas's and to have the patient seen with a urologist who is available in [facility] but not in [place]. When asked with the patient about any urology follow-up or plan that were made in the past, he was teary and informed that he never got the chance to see a urologist or sometimes he could not have proper transportation to go out of [place] to seek a urologist to help him. I discussed his future plan with the patient of seeing a urologist in [facility] since I already discussed with Dr. Mtz and gave details of the patient to arrange his appointment after stabilization, the patient felt contented and emotional since he further explained that he has been suffering since more than a year with this condition and never got surgery or urology on board for it due to various reasons. Review of Systems 2 General: Reports: 10 or more systems reviewed and unremarkable except in HPI and below Medications/Allergies Home Medications ?Medication ?Instructions ?Recorded ?Confirmed ?Last Taken ?Type tamsulosin 0.4 mg capsule 0.4 mg PO DAILY #90 caps 05/19/25 05/18/25 Rx amlodipine 5 mg tablet 5 mg PO DAILY hypertension # 90 tabs 02/01/25 05/19/25 05/18/25 Rx aspirin 81 mg tablet,delayed 81 mg PO DAILY 05/19/25 1 05/18/25 History release (Delmy Low Dose Aspirin) ibuprofen 200 mg tablet (Advil) 400 mg PO Q6H PRN Feve r Or Pain 05/19/25 05/19/25 05/18/25 History Allergies Allergy/AdvReac Type Severity Reaction Status Date / Time No Known Allergies Allergy Verified 11/10/24 18:24 PFSH Acute 2 PFSH: Medical History Bladder wall thickening seen on CT 12/16; gone on 12/[address] 2023 Nicotine dependence, cigarettes, with other nicotine-induced disorders declined LDCT 4. Acute kidney injury Creatinine was 2.9 with GFR of 22 on 11/26/2023 and had decreased to a creatinine of 1.3 with a GFR of 58 on 12/01/2023 Hypertension Acute urinary retention Urinary Navas placement with 3000 cc return on 11/26/2023 BPH w urinary obs/LUTS Surgical History No pertinent past surgical history Family History Father No problems noted. 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 Vitals/I&O/Wt Last Vital Signs Temp 97.4 F L 05/19/25 10:48 Pulse 84 05/19/25 12:55 Resp 12 05/19/25 12:55 BP 163/111 05/19/25 12:55 Pulse Ox 98 05/19/25 12:55 O2 Del Method Room Air 05/19/25 12:55 Weight last 48 hrs Weight 81.647 kg Physical Exam 2 Narrative: General: Alert and oriented, lying comfortably without any distress with Navas's catheter having mild pinkish output but adequately draining HEENT: Normocephalic, atraumatic, grossly unremarkable exam Cardio: normal rate rhythm, normal S1-S2 without any murmurs, rubs, or gallops and JVD normal Respiratory: normal vascular breathing on auscultation without any wheezes, stridor, rhonchi GI: Abdomen soft, nontender, nondistended, normoactive bowel sounds present all 4 quadrants, Neuro: Gross examination unremarkable Behavior: Appropriate and cooperative Extremities: Adequate palpable pulses, no edema or cyanosis observed. Urinary Catheter Management: Navas: Cath Placed During This Visit: yes Urinary Catheter Date of Insertion: 05/19/25 Urinary Catheter Time of Insertion: 12:45 Data 05/19/25 11:12 05/19/25 11:12 A&P Assessment and plan 1. Acute kidney injury: Secondary to postobstructive uropathy old CT scan of the abd pelvis mentioned about bilateral hydronephrosis but no comment on prostate was made. Ultrasound kidneys and prostate for further evaluation of prostate size and volume Continue Navas's Monitor intake and output monitoring Monitor and correction of electrolytes Monitor renal parameters and any signs of uremic nephropathy or fluid overload 2. BPH w urinary obs/LUTS: - Urology at [facility] Dr. Mtz was called to have further opinion of this patient's current condition considering we do not have any urology to guide on the patient post discharge management after Navas's insertion. And the patient has multiple visits in a year due to acute urinary retention requiring Navas's catheter secondary to bladder outlet obstruction - Post discharge referral to the urologist - Dr. Mtz recommended to continue Navas for 1 to 2 weeks and to give him appointment in [facility] with the Navas's in place so they can further schedule an interventional procedure to help the patient in optimizing his current condition. - tamsulosin 0.4mg daily - add finesteride - monitor intake and output 3. Hypertension: Patient on amlodipine 5 mg at home, currently high blood pressure likely due to retention of the urine To increase the dose to 10 mg and to continue and monitor 4. Nicotine dependence, cigarettes, with other nicotine-induced disorders: Emphasis on nicotine abstinence and avoidance of smoking has been provided Nicotine patch as needed Lorazepam 2 mg oral as needed for anxiety PDMP PDMP Reviewed: Not Reviewed Attestations 2 Medical Necessity Statement*: The patient will stay more than 2 midnights for the management of his severe class III KIMBERLEY with postobstructive uropathy, hyperkalemia and further postop arrangement with urology for management of bladder outlet obstruction secondary to BPH Time Spent in Patient Care: 16 - 35 minutes (>than 50% of time sp ent in counselling and/or direct pt care on unit) . Other Attestations: Patient condition has been discussed at length with the patient/family, I have independently reviewed the chart labs imaging/diagnostics/EKG. the goals of care and code status with the patient/family/NOK/legal parts sales representative, and documented accordingly. The patient/family has been informed about the current condition and further plan of care. Agreed with the plan of care and understood without any language barrier. Every effort was made to ensure accuracy of car seat maker. Any obvious errors or omissions should be clarified with the author of the document. Coding Level of Care Code 54746 Diagnoses Acute kidney injury N17.9 BPH w urinary obs/LUTS N40.1; N13.8 Hypertension I10 Nicotine dependence, cigarettes, with other nicotine-induced disorders F17.218
--- OUTSIDE RECORDS SUMMARY | 2025-05-19 13:49 | XMS_ITS | Clinical Summary ---
Author Organization [facility] Address [address] 

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
--- NOTE | 2025-05-19 14:08 | PC.NURSE ---
unclamped davis @1330, urine output of approx 1200 more mL. re-clamped davis catheter. ICU nurse Luis Felipe notified
[2025-05-19] MEDS: heparin 5,000 unit/mL INJ 1 mL 5000 UNIT SUBCUT (14:11)
[2025-05-19] MEDS: morphine 4 mg/mL SDV 1 mL 2 MG IVP (16:02)
--- NOTE | 2025-05-19 16:51 | USR_ITS ---
PROCEDURE INFORMATION: Exam: US Retroperitoneal, Complete, Kidneys and Bladder Exam date and time: 05/19/2025 6:27 PM Age: 55 years old Clinical indication: KIMBERLEY TECHNIQUE: Imaging protocol: Real-time ultrasound of the retroperitoneum with image documentation. Complete exam focused on the bilateral kidneys and urinary bladder. COMPARISON: CT kidney stone [id number] 11/10/2024 6:58 PM FINDINGS: Right kidney: Severe right hydronephrosis. Left kidney: Severe left hydronephrosis. Urinary bladder: A Navas catheter is present in the urinary bladder. The urinary bladder is thick walled with trabeculations. Echogenic debris in the bladder lumen. Large bladder diverticulum. There is a tubular, rounded focus along the wall of a large bladder diverticulum. Prostate: Prostate measures 3.7 x 3.5 x 5.0 cm with a volume of approximately 34 cc. US/US renal BI* [id number] IMPRESSION: 1. Severe bilateral hydroureteronephrosis. 2. Urinary bladder wall is thickened and irregular with trabeculations. There is echogenic debris in the bladder lumen which may represent blood products, debris or infection related sediment. 3. There is a tubular, rounded structure along the wall of the large bladder diverticulum likely represents the distal ureter inserting into the diverticulum. 3. Prostate volume of 34 cc, mildly enlarged.
[2025-05-19] MEDS: ondansetron 2 mg/ML SDV 2 mL 4 MG IVP (17:04)
[2025-05-19 18:08] LABS: Anion Gap 25.4 (5-19); Calcium 9.1 mg/dL (8.5-10.5); Carbon Dioxide 15 mmol/L (22-29); Chloride 99 mmol/L (98-107); Creatinine Clr Calc Pharmacy 8.1552; Glucose 155 mg/dL (65-115); Potassium 4.4 mmol/L (3.5-5.1); Sodium 135 mmol/L (136-145)
[2025-05-19 18:18] LABS: Osmolality Calculated 331 mOsm/kg (285-295)
[2025-05-19 18:19] LABS: Blood Urea Nitrogen 147 mg/dL (6-20)
[2025-05-19] MEDS: sodium bicarbonate 8.4% syr 100 MEQ in dextrose 5% 250 ML 500 MEQ IV (19:30)
--- NOTE | 2025-05-19 19:52 | CTR_ITS ---
PROCEDURE INFORMATION: Exam: CT Abdomen And Pelvis Without Contrast Exam date and time: 05/19/2025 8:11 PM Age: 55 years old Clinical indication: Acute renal failure, gross hematuria TECHNIQUE: Imaging protocol: Computed tomography of the abdomen and pelvis without contrast. Radiation optimization: All CT scans at this facility use at least one of these dose optimization techniques: automated exposure control; mA and/or kV adjustment per patient size (includes targeted exams where dose is matched to clinical indication); or iterative reconstruction. COMPARISON: CT kidney stone [id number] 11/10/2024 6:58 PM RADIATION DOSE METRICS: Total DLP (mGy-cm): 460.63 FINDINGS: Lungs: Small right pleural effusion. Subsegmental dependent atelectasis. Liver: Unremarkable unenhanced appearance of the liver. Gallbladder and biliary ducts: Cholelithiasis without CT findings of acute cholecystitis. No biliary ductal dilation. Pancreas: No main pancreatic duct dilation. Spleen: No splenomegaly. Adrenal glands: No adrenal nodule. Kidneys and ureters: Severe bilateral hydroureteronephrosis. No obstructing stones. Stomach and bowel: No bowel obstruction. No mucosal thickening. Appendix: No evidence of appendicitis. Intraperitoneal space: No free air. No free fluid. Vasculature: No aortic aneurysm. Lymph nodes: Scattered retroperitoneal nodes near the upper limits of normal in size. Urinary bladder: The urinary bladder wall is markedly thickened with irregular trabeculations. There is are large bladder diverticula arising from the lateral aspects of the bladder. There is high-density material layering in the bladder, likely representing blood products. A Navas catheter is present however the urinary bladder is not fully decompressed. Reproductive: The prostate is near the upper limits of normal in size. Bones/joints: No acute fracture. Soft tissues: Unremarkable. CT/CT abdomen pelvis wo con [id number] IMPRESSION: 1. Severe bilateral hydroureteronephrosis. Findings are concerning for bladder outlet obstruction. 2. Large amount of blood products in the bladder. Recommend correlation with results of cystoscopy to exclude underlying lesion. 3. Urinary bladder wall is thickened with a irregular trabeculations and large diverticula. Findings are suggestive of chronic bladder outlet obstruction. 4. A Navas catheter is positioned in the bladder, however the bladder is not fully decompressed, likely reflecting Navas dysfunction in the setting of urinary bladder blood products.
--- NOTE | 2025-05-19 20:01 | P.CONIM_ITS ---
Providers/Reason For Consult 2 Consulting Physician/Specialty*: kommana/Nephrology Reason for Consult*: Acute on CKD Attending Physician: Rico Rapp MD Primary Care Provider: Kaylen Dowd MD History of Present Illness History of Present Illness 55-year-old male with past medical history of hypertension and chronic bladder outlet obstruction, likely from enlarged prostate, prior imaging showing severe bilateral hydro utero nephrosis and chronic kidney disease, presented to the emergency department due to nausea vomiting and abdominal pain. Patient is known to have urinary retention was referred to urology but has not seen urology so far. Initial lab data was significant for BUN of 151 and creatinine of 11.1, CO2 of 14 and potassium of 5.3 and sodium level of 129. Navas catheter was inserted in the ER with 2 L of urine output immediately. Patient currently appears comfortable on room air, currently on bicarbonate drip, he reports poor p.o. intake due to poor appetite and intermittent nausea vomiting. Also takes ibuprofen as needed for pain for the last few months. Review of Systems 2 Narrative: Other review of systems negative Medications/Allergies Home Medications ?Medication ?Instructions ?Recorded ?Confirmed ?Last Taken ?Type tamsulosin 0.4 mg capsule 0.4 mg PO DAILY #90 caps 05/19/25 05/18/25 Rx amlodipine 5 mg tablet 5 mg PO DAILY hypertension # 90 tabs 02/01/25 05/19/25 05/18/25 Rx aspirin 81 mg tablet,delayed 81 mg PO DAILY 05/19/25 1 05/18/25 History release (Delmy Low Dose Aspirin) ibuprofen 200 mg tablet (Advil) 400 mg PO Q6H PRN Feve r Or Pain 05/19/25 05/19/25 05/18/25 History Allergies Allergy/AdvReac Type Severity Reaction Status Date / Time No Known Allergies Allergy Verified 11/10/24 18:24 Current Medications Generic Name Dose Route Start Last Admin Trade Name Freq PRN Reason Stop Dose Admin Amlodipine Besylate 10 mg 05/19/25 17:00 05/19/25 16:58 Amlodipine 5 Mg Tablet PO 10 mg DAILY SAMMIE Administration Finasteride 5 mg 05/19/25 16:50 05/19/25 16:58 Finasteride 5 Mg Tablet PO 5 mg DAILY SAMMIE Administration Heparin Sodium (Porcine) 5,000 unit 05/19/25 13:45 05/19/25 14:11 Heparin 5,000 Unit/Ml Inj 1 Ml SUBCUT 5,000 unit Q12H SAMMIE Administration Sodium Chloride 1,000 mls @ 100 mls/hr 05/19/25 13:32 05/19/25 19:37 Sodium Chloride 0.9% IV 0 mls/hr .Q10H SAMMIE Infusion Lorazepam 2 mg 05/19/25 16:28 05/19/25 18:12 Lorazepam 2 Mg Tablet PO 2 mg BID PRN Administration ANXIETY Morphine Sulfate 2 mg 05/19/25 13:37 05/19/25 16:02 Morphine 4 Mg/Ml Sdv 1 Ml IVP 2 mg Q4H PRN Administration SEVERE PAIN PFSH Acute 2 PFSH: Medical History Bladder wall thickening seen on CT 12/16; gone on 12/[address] 2023 Nicotine dependence, cigarettes, with other nicotine-induced disorders declined LDCT 4. Acute kidney injury Creatinine was 2.9 with GFR of 22 on 11/26/2023 and had decreased to a creatinine of 1.3 with a GFR of 58 on 12/01/2023 Hypertension Acute urinary retention Urinary Navas placement with 3000 cc return on 11/26/2023 BPH w urinary obs/LUTS Surgical History No pertinent past surgical history Family History Father No problems noted. 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 Vitals/I&O/Wt Last Vital Signs Temp 98.3 F 05/19/25 14:25 Pulse 92 05/19/25 16:44 Resp 15 05/19/25 16:40 BP 168/124 05/19/25 16:40 Pulse Ox 95 05/19/25 16:40 O2 Del Method Room Air 05/19/25 16:40 05/19/25 05/19/25 05/19/25 06:59 14:59 22:59 Intake Total 1000 / 1000 943.333 / 1943.333 Output Total 2650 / 2650 Balance 1000 / 1000 -1706.667 / -706.667 Weight last 48 hrs Weight 75.296 kg Weight 81.647 kg Physical Exam 2 Narrative: Patient is awake alert, no acute distress No JVD PERRLA S1-S2 regular rate and rhythm Lungs clear bilaterally Abdomen soft nontender Extremities no pedal edema Skin no rash Urinary Catheter Management: Navas: Cath Placed During This Visit: yes Reason for Continuing Indwelling Catheter: Accurate Measurement of Urinary Output in Critically Ill Patients Urinary Catheter Date of Insertion: 05/19/25 Urinary Catheter Time of Insertion: 12:45 Data 05/19/25 11:12 05/19/25 17:33 A&P Assessment and plan 1. Acute kidney injury: Plan: 1. Acute on chronic kidney disease stage IV : Creatinine was 1.3 in November 2023, and noted rising creatinine up to 6 range in October 2024. Now patient has severe KIMBERLEY with a creatinine of 11 and a BUN of 151. I suspect advanced CKD due to chronic obstruction. - Agree with bicarbonate drip, serial BMPs - If no improvement , will discuss initiation of dialysis due to presence of uremic symptoms -Plan to get CT scan abdomen without contrast tonight, if patient has severe bilateral hydroureteronephrosis on CT, he will benefit from transferring for urology for bilateral nephrostomy tubes. - Avoid IV contrast 2. Metabolic acidosis: Due to renal insufficiency, agree with bicarbonate drip, 3. Hyperkalemia: Mild, improved 4. History of hypertension Patient evaluated using audiovisual cart. Time spent 45 minutes. Discussed with hospitalist. PDMP PDMP Reviewed: Not Reviewed Consult Attestations 2 Medical Necessity Statement: Per medicine team Coding Level of Care Code Acute Code for [facility] Fwd Diagnoses Acute kidney injury N17.9
[2025-05-19] MEDS: citric acid-sodium citrate 30 mL UDC PO (20:02)
[2025-05-20] VITALS (117 sets, daily range): BP systolic 98–175; BP diastolic 58–109; PULSE 90–109; RESP 10–28; TEMP 36.9–37.1; O2SAT 90–100
--- NOTE | 2025-05-20 00:24 | PC.NURSE ---
Contacted Dr. West in regards to patient being consistently hypertensive. Discussed patients current medications and received orders for 50mg Hydralazine PO Now, as well as 50 mg of Hydralazine p.o. BID. LY reflected to show orders.
--- NOTE | 2025-05-20 00:52 | PC.NURSE ---
Heparin dose held Patient has been consistently having hematuria in davis bag, Dr West gave verbal orders to hold scheduled dose of Heparin at this time.
[2025-05-20 01:18] LABS: Anion Gap 26.5 (5-19); Calcium 8.8 mg/dL (8.5-10.5); Carbon Dioxide 16 mmol/L (22-29); Chloride 98 mmol/L (98-107); Glucose 106 mg/dL (65-115); Potassium 4.5 mmol/L (3.5-5.1); Sodium 136 mmol/L (136-145)
[2025-05-20 01:42] LABS: Osmolality Calculated 325 mOsm/kg (285-295)
[2025-05-20 01:43] LABS: Blood Urea Nitrogen 133 mg/dL (6-20); Creatinine Clr Calc Pharmacy 9.5287
[2025-05-20 05:05] LABS: Hematocrit 25.9 % (37-53); Hemoglobin 8.50 g/dL (11.27-16.99); Mean Corpuscular HGB Conc 32.8 g/dL (30-55); Mean Corpuscular Hemoglobin 27.1 pg (27-33); Mean Corpuscular Volume 82.5 fl (82-101); Nucleated Red Blood Cells % 0 %; Platelet Count 162 10^3/cmm (157-399); Red Blood Count 3.14 10^6/uL (3.85-5.65); White Blood Count 11.06 10^3/uL (3.29-11.43)
[2025-05-20 05:35] LABS: Alanine Aminotransferase 9 U/L (0-41); Albumin Level 3.2 g/dL (3.5-5.2); Alkaline Phosphatase 92 U/L (40-130); Anion Gap 24.1 (5-19); Aspartate Amino Transferase 10 U/L (0-40); Calcium 8.7 mg/dL (8.5-10.5); Carbon Dioxide 17 mmol/L (22-29); Chloride 98 mmol/L (98-107); Creatinine Clr Calc Pharmacy 8.7041; Globulin 3.8 g/dL (1.3-4.6); Glucose 98 mg/dL (65-115); Potassium 4.1 mmol/L (3.5-5.1); Sodium 135 mmol/L (136-145); Total Protein 7.0 g/dL (6.6-8.7)
[2025-05-20 05:53] LABS: Osmolality Calculated 324 mOsm/kg (285-295)
[2025-05-20 06:06] LABS: Slide Review Slide Review Perform
[2025-05-20 06:08] LABS: Blood Urea Nitrogen 135 mg/dL (6-20)
[2025-05-20] MEDS: citric acid-sodium citrate 30 mL UDC PO (06:11)
--- NOTE | 2025-05-20 07:29 | W.PM.EVENTAC ---
Event Note Event Note: Bilateral hydroureteronephrosis with class III KIMBERLEY: I was called by the supervisor network control operators post shift yesterday around 7:20pm evening about the patient condition and consultation placed by the ER based on kidney functions. I elaborated his condition of bladder outlet obstruction and there was a concern shown by the supervisor network control operators that no CT scan abdomen/pelvis done in the ER as well. I further informed that I have requested ultrasound kidney bladder with prostate since previous CT scans did not mention any size of the prostate or any information on it. However considering patient severe class III KIMBERLEY versus KIMBERLEY on CKD the supervisor network control operators was concerned for him being managed here without any urology services since the patient may benefit due to his underlying condition with intervention from urology??During patient admission, I requested urology opinion from ER physician and later on I proceeded to have urology opinion through [facility] in order to guide on further management since as per the ER physician, the patient is on Navas, is producing good amount of urine and looks stable therefore was admitted. I added bicarb drip as well due to severe acidosis. The patient did not have any features of uremic nephropathy or signs requiring urgent dialysis however considering patient severe renal parameters derangement secondary to high likelihood postobstructive uropathy that has been going on since more than a year, the supervisor network control operators further explained that he may require dialysis if the improvement is not adequate with medical management. I further requested the on-call second shift supervisor physician Dr. Correa for CT scan abdomen pelvis without contrast. The CT scan reported severe bilateral hydroureteronephrosis concerning for bladder outlet obstruction. Large amount of blood products in the bladder and recommendation of cystoscopy was made. There was also Navas dysfunction mentioned in the CAT scan in the setting of urinary bladder products. Patient repeat labs are more or less little bit improved but not significant enough. The patient has been explained thoroughly about his condition and further management. He is also explained about his current critical condition. Transfer has been initiated Patient condition has been discussed at length with the patient/family, I have independently reviewed the chart labs imaging/diagnostics/EKG. the goals of care and code status with the patient/family/NOK/legal surgical device sales representative, and documented accordingly. The patient/family has been informed about the current condition and further plan of care. Agreed with the plan of care and understood without any language barrier. Every effort was made to ensure accuracy of records management engineer. Any obvious errors or omissions should be clarified with the author of the document. Event Notes Attestations Time Spent in Patient Care: 16 - 35 minutes (>than 50% of time spent in counselling and/or direct pt care on unit).
--- NOTE | 2025-05-20 09:52 | PC.NURSE ---
Transfer to [facility], Room 3A 3101 bed 2.
--- NOTE | 2025-05-20 10:14 | PC.NURSE ---
Report called to [facility] - [id number]
--- NOTE | 2025-05-20 10:21 | PC.NURSE ---
[facility] contacted for transport.
[2025-05-20 10:44] LABS: Anion Gap 25.1 (5-19); Calcium 8.7 mg/dL (8.5-10.5); Carbon Dioxide 16 mmol/L (22-29); Chloride 96 mmol/L (98-107); Creatinine Clr Calc Pharmacy 9.9476; Glucose 164 mg/dL (65-115); Potassium 4.1 mmol/L (3.5-5.1); Sodium 133 mmol/L (136-145)
[2025-05-20 10:52] LABS: Osmolality Calculated 319 mOsm/kg (285-295)
[2025-05-20 10:53] LABS: Blood Urea Nitrogen 122 mg/dL (6-20)
--- NOTE | 2025-05-20 11:19 | PC.NURSE ---
Patient in care of [facility] at the time of this note. All belongings with patient in OZ bag.
--- NOTE | 2025-05-20 12:09 | P.TS_ITS ---
Transfer Summary Providers Date of Admission: 05/19/25 12:52 Date of Discharge/Transfer: 05/20/25 Attending Provider at Admission: Rico Rapp MD Attending Provider at Transfer: Rico Rapp MD Primary Care Provider: Kaylen Dowd MD Transfer Plans: Anticipated date of transfer: 05/20/25 . Diagnoses at Discharge Discharge Diagnosis 1. Acute kidney injury: Reason for Visit Reason for Visit N/V SOB R side pain Brief History: Chester Perez is a 55 year old male with past medical history of enlarged prostate leading to intermittent bladder outlet obstruction requiring multiple encounters of Navas's admission KIMBERLEY postobstructive in nature, came to ER with difficulty in urination and found to have a large bladder secondary to bladder outlet obstruction. The patient underwent Navas's insertion in the ER producing more than a liter of urine Which was mild pinkish in color. The patient did not report any dysuria or burning micturition. No fever or chills. No abdominal pain shortness of breath or any chest pain or chest pressure or dizziness. Rest of the review of system is unremarkable. Of note, patient had multiple encounters of urinary obstructive symptoms and requiring intermittent Navas's insertion. The chart was reviewed and showed CT abdomen and pelvis imaging studies that were done however no comment on the prostate was made apart from bilateral hydronephrosis of the kidneys. After review of his chart thoroughly I decided to further have urology input which can further avoid such visits and discomfort to the patient so that patient can have postdischarge care with a urologist and a proper plan for future optimization of his condition. Dr. Mtz was consulted from [facility] and advised to keep the Navas's and to have the patient seen with a urologist who is available in [facility] but not in [place]. When asked with the patient about any urology follow-up or plan that were made in the past, he was teary and informed that he never got the chance to see a urologist or sometimes he could not have proper transportation to go out of [place] to seek a urologist to help him. I discussed his future plan with the patient of seeing a urologist in [facility] since I already discussed with Dr. Mtz and gave details of the patient to arrange his appointment after stabilization, Hospital Course Hospital Course At the time of admission, it was discussed with the ER physician to have urology input however as per the ER physician he was stable and Navas's was inserted therefore proceeded with admission. I called the urology services and further got his appointment as mentioned above to manage him post discharge considering he has multiple encounters and episodes of acute urinary retention with previous CAT scans of abdomen and pelvis mentioning bilateral hydronephrosis. Furthermore nephrology was also consulted by ER and I was called after shift about patient condition. The nephrology was also concerned about not having a repeat CAT scan through ER and was ordered overnight which showed bilateral hydroureteronephrosis with bladder debris high likelihood of blood products. His kidney functions were not improving even after Navas's insertion however patient did not show signs of uremic and cephalopathy. During his hospital stay the patient was placed in Navas's catheter and was draining adequately. However over the 24 hours he started to have cecilia hematuria. He was dizzy and there was mild low hemoglobin but no cecilia drop.. The patient underwent CT scan as per nephrology recommendations who was consulted for further management based on his severe renal derangement. The nephrology recommended since the patient is having severe renal derangement seems like he has KIMBERLEY on top of CKD that is why the patient does not show cecilia features of uremic nephropathy but considering the patient has bladder outlet obstruction we need a CT scan and to see if the renal functions improve or are not improved after Navas's catheterization. Nephrology also further emphasized that it is better to have urology services on board for management of this patient.. CT scan of the abdomen showed hydroureteronephrosis with debris and b lood in the bladder and the patient bladder was not fully decompressed.Ultrasound was also done considering previous CT scans did not mention about prostate size and ultrasound showed mild prostate enlargement. His labs did not improve s/p Navas insertion and as per recommendation of the nephrology and considering patient having cecilia hematuria it was decided in the best interest of the patient after discussing with the patient and the family to transfer him under urology services. Dr. Mtz from [facility] was consulted and accepted the patient. I appreciate his opinion and further guidance for management of this gentleman. Patient condition has been discussed at length with the patient/family, I have independently reviewed the chart labs imaging/diagnostics/EKG. the goals of care and code status with the patient/family/NOK/legal apprenticeship training representative, and documented accordingly. The patient/family has been informed about the current condition and further plan of care. Agreed with the plan of care and understood without any language barrier. Every effort was made to ensure accuracy of chief digital media officer. Any obvious errors or omissions should be clarified with the author of the document. Physical Exam Narrative: General: Alert and oriented, lying comfortably without any distress having Navas's catheter in place with cecilia blood HEENT: Normocephalic, atraumatic, grossly unremarkable exam Cardio: normal rate rhythm, normal S1-S2 without any murmurs, rubs, or gallops and JVD normal Respiratory: normal vascular breathing on auscultation without any wheezes, stridor, rhonchi GI: Abdomen soft, nontender, nondistended, normoactive bowel sounds present all 4 quadrants, Neuro: intact cranial nerves motor and sensory and cerebellar/coordination function without any focal neurological deficit Behavior: Appropriate and cooperative Extremities: Adequate palpable pulses, no edema or cyanosis observed. Urinary Catheter Management: Navas: Cath Placed During This Visit: yes Reason for Continuing Indwelling Catheter: Acute Urinary Retention or Obstruction Urinary Catheter Date of Insertion: 05/19/25 Urinary Catheter Time of Insertion: 12:45 TS Data Studies Completed and Pending Completed Studies During Hospitalization Category Date Time Status CT abdomen pelvis wo con [id number] Routine Cat Scan 05/19/25 19:52 Completed US renal BI* [id number] Routine Ultrasound 05/19/25 16:51 Completed Laboratory Last Values WBC 11.06 10^3/uL (3.29-11.43) 05/20/25 04:29 RBC 3.14 10^6/uL (3.85-5.65) L 05/20/25 04:29 Hgb 8.50 g/dL (11.27-16.99) L 05/20/25 04:29 Hct 25.9 % (37-53) L 05/20/25 04:29 MCV 82.5 fl (82-101) 05/20/25 04:29 MCH 27.1 pg (27-33) 05/20/25 04:29 MCHC 32.8 g/dL (30-55) 05/20/25 04:29 RDW 16.4 % (12.1-15.1) H 05/20/25 04:29 Plt Count 162 10^3/cmm (157-399) 05/20/25 04:29 MPV 10.9 fL (7.4-10.4) H 05/20/25 04:29 Neut % (Auto) 75.3 % 05/20/25 04:29 Lymph % (Auto) 14.3 % 05/20/25 04:29 Casey % (Auto) 9.2 % 05/20/25 04:29 Eos % (Auto) 0.5 % 05/20/25 04:29 Baso % (Auto) 0.4 % 05/20/25 04:29 Neut # (Auto) 8.33 10^3/uL (1.8-7.7) H 05/20/25 04:29 Lymph # (Auto) 1.6 10^3/uL (0.8-4.8) 05/20/25 04:29 Casey # (Auto) 1.0 10^3/uL (0.2-0.9) H 05/20/25 04:29 Eos # (Auto) 0.1 10^3/uL (0.0-0.8) 05/20/25 04:29 Baso # (Auto) 0.0 10^3/uL (0.0-0.1) 05/20/25 04:29 Nucleated RBC % (auto) 0 % 05/20/25 04:29 Nucleated RBCs # 0.0 /100WBC 05/20/25 04:29 Sodium 133 mmol/L (136-145) L 05/20/25 10:10 Potassium 4.1 mmol/L (3.5-5.1) 05/20/25 10:10 Chloride 96 mmol/L (98-107) L 05/20/25 10:10 Carbon Dioxide 16 mmol/L (22-29) L 05/20/25 10:10 Anion Gap 25.1 (5-19) H 05/20/25 10:10 BUN 122 mg/dL (6-20) H* 05/20/25 10:10 Creatinine 9.1 mg/dL (0.7-1.2) H* 05/20/25 10:10 GFR Calculation 6.1 mL/min (90-130) L 05/20/25 10:10 Glucose 164 mg/dL (65-115) H 05/20/25 10:10 Calculated Osmolality 319 mOsm/kg (285-295) H 05/20/25 10:10 Lactic Acid 0.6 mmol/L (0.5-2.2) 05/19/25 11:12 Calcium 8.7 mg/dL (8.5-10.5) 05/20/25 10:10 Total Bilirubin 0.4 mg/dL (0.15-1.2) 05/20/25 04:29 AST 10 U/L (0-40) 05/20/25 04:29 ALT 9 U/L (0-41) 05/20/25 04:29 Alkaline Phosphatase 92 U/L (40-130) 05/20/25 04:29 Total Protein 7.0 g/dL (6.6-8.7) 05/20/25 04:29 Albumin 3.2 g/dL (3.5-5.2) L 05/20/25 04:29 Globulin 3.8 g/dL (1.3-4.6) 05/20/25 04:29 Lipase 74 U/L (13-60) H 05/19/25 11:12 Urine Color Yellow (Yellow) 05/19/25 11:48 Urine Appearance Clear (CLEAR) 05/19/25 11:48 Urine pH 6.0 (5-7) 05/19/25 11:48 Ur Specific [place] 1.009 (1.005-1.030) 05/19/25 11:48 Urine Protein Trace (Negative) A 05/19/25 11:48 Urine Glucose (UA) Negative (Normal) 05/19/25 11:48 Urine Ketones Negative (Negative) 05/19/25 11:48 Urine Blood Negative (Negative) 05/19/25 11:48 Urine Nitrate Negative (Negative) 05/19/25 11:48 Urine Bilirubin Negative (Negative) 05/19/25 11:48 Urine Urobilinogen 0.2 mg/dL (Negative) 05/19/25 11:48 Ur Leukocyte Esterase Negative (Negative) 05/19/25 11:48 Urine RBC 0-2 /hpf (0-2) 05/19/25 11:48 Urine WBC 0-5 /hpf (0-5) 05/19/25 11:48 Ur Squamous Epith Cells 0-5 /hpf (0-5) 05/19/25 11:48 Amorphous Sediment Not Reportable 05/19/25 11:48 Urine Bacteria None seen /hpf (NONE) 05/19/25 11:48 Hyaline Casts 0-4 /lpf H 05/19/25 11:48 Radiology Impressions Renal Ultrasound 05/19/25 16:51 IMPRESSION: 1. Severe bilateral hydroureteronephrosis. 2. Urinary bladder wall is thickened and irregular with trabeculations. There is echogenic debris in the bladder lumen which may represent blood products, debris or infection related sediment. 3. There is a tubular, rounded structure along the wall of the large bladder diverticulum likely represents the distal ureter inserting into the diverticulum. 3. Prostate volume of 34 cc, mildly enlarged. Abdomen/Pelvis CT 05/19/25 19:52 IMPRESSION: 1. Severe bilateral hydroureteronephrosis. Findings are concerning for bladder outlet obstruction. 2. Large amount of blood products in the bladder. Recommend correlation with results of cystoscopy to exclude underlying lesion. 3. Urinary bladder wall is thickened with a irregular trabeculations and large diverticula. Findings are suggestive of chronic bladder outlet obstruction. 4. A Navas catheter is positioned in the bladder, however the bladder is not fully decompressed, likely reflecting Navas dysfunction in the setting of urinary bladder blood products. Recent Clincial Data Last Vital Signs Temp 98.6 F 05/20/25 11:21 Pulse 90 05/20/25 11:21 Resp 14 05/20/25 11:21 BP 112/76 05/20/25 11:21 Pulse Ox 98 05/20/25 11:21 O2 Del Method Room Air 05/20/25 10:10 Vital Signs Temp Pulse Resp BP Pulse Ox O2 Del Method 05/20/25 11:21 98.6 F 90 14 112/76 98 05/20/25 10:10 101 H 12 140/93 92 Room Air 05/20/25 10:05 106 H 13 140/93 95 Room Air 05/20/25 10:00 106 H 14 140/93 94 Room Air 05/20/25 09:55 103 H 12 113/69 91 Room Air 05/20/25 09:50 99 12 113/69 91 Room Air 05/20/25 09:45 100 15 113/69 91 Room Air 05/20/25 09:40 99 17 110/70 92 Room Air 05/20/25 09:35 99 18 110/70 92 Room Air 05/20/25 09:30 100 21 H 110/70 92 Room Air 05/20/25 09:25 100 12 128/72 92 Room Air 05/20/25 09:20 98 15 128/72 93 Room Air 05/20/25 09:15 98.6 F 98 15 128/72 91 Room Air 05/20/25 09:10 96 14 120/72 93 Room Air 05/20/25 09:05 94 14 120/72 92 Room Air 05/20/25 09:00 98 15 120/72 94 Room Air 05/20/25 08:55 96 13 113/76 92 Room Air 05/20/25 08:50 97 12 113/76 92 Room Air 05/20/25 08:45 98 17 113/76 93 Room Air 05/20/25 08:40 95 19 H 100/69 92 Room Air 05/20/25 08:35 97 14 100/69 92 Room Air 05/20/25 08:30 97 14 100/69 91 Room Air 05/20/25 08:25 98 13 108/65 05/20/25 08:20 102 H 14 108/65 05/20/25 08:15 99 14 108/65 92 Room Air 05/20/25 08:10 102 H 18 98/64 92 Room Air 05/20/25 08:05 105 H 19 H 98/64 92 Room Air 05/20/25 08:00 105 H 24 H 98/64 92 Room Air 05/20/25 07:55 104 H 14 93 Room Air 05/20/25 07:50 103 H 12 93 Room Air 05/20/25 07:45 104 H 15 92 Room Air 05/20/25 07:40 104 H 24 H 98/58 92 Room Air 05/20/25 07:35 105 H 18 98/58 91 Room Air 05/20/25 07:30 105 H 12 98/58 93 Room Air 05/20/25 07:25 107 H 13 112/60 92 Room Air 05/20/25 07:20 106 H 15 112/60 92 Room Air 05/20/25 07:15 107 H 12 112/60 91 Room Air 05/20/25 07:10 106 H 12 126/74 92 Room Air 05/20/25 07:05 104 H 14 126/74 93 Room Air 05/20/25 07:00 109 H 18 126/74 93 Room Air 05/20/25 06:55 106 H 17 106/58 93 Room Air 05/20/25 06:50 103 H 15 106/58 93 Room Air 05/20/25 06:45 106 H 13 106/58 94 Room Air 05/20/25 06:40 105 H 15 113/61 90 Room Air 05/20/25 06:35 105 H 17 113/61 93 Room Air 05/20/25 06:30 103 H 13 113/61 92 Room Air 05/20/25 06:25 105 H 19 H 124/80 93 Room Air 05/20/25 06:20 104 H 12 124/80 93 Room Air 05/20/25 06:15 109 H 22 H 124/80 93 Room Air 05/20/25 06:10 107 H 13 137/80 93 Room Air 05/20/25 06:05 104 H 12 137/80 93 Room Air 05/20/25 06:00 103 H 12 137/80 92 Room Air 05/20/25 05:55 105 H 12 123/89 94 Room Air 05/20/25 05:54 101 H 05/20/25 05:50 106 H 14 123/89 93 Room Air 05/20/25 05:45 104 H 13 123/89 93 Room Air 05/20/25 05:40 105 H 14 133/82 94 Room Air 05/20/25 05:35 103 H 14 133/82 94 Room Air 05/20/25 05:30 101 H 15 133/82 94 Room Air 05/20/25 05:25 102 H 12 141/104 94 Room Air 05/20/25 05:20 100 14 141/104 95 Room Air 05/20/25 05:15 99 14 139/90 94 Room Air 05/20/25 05:10 100 12 139/90 96 Room Air 05/20/25 05:00 98.8 F 102 H 12 139/90 96 05/20/25 04:55 100 12 148/93 95 05/20/25 04:50 100 17 148/93 95 05/20/25 04:45 100 14 148/93 91 05/20/25 04:40 101 H 12 136/86 96 05/20/25 04:35 99 12 136/86 95 05/20/25 04:30 101 H 21 H 136/86 95 05/20/25 04:25 105 H 15 132/78 94 05/20/25 04:20 102 H 12 132/78 93 05/20/25 04:15 99 10 L 132/78 94 05/20/25 04:10 99 12 117/79 94 05/20/25 04:05 104 H 22 H 117/79 95 05/20/25 04:00 105 H 17 134/80 95 05/20/25 03:55 103 H 18 134/80 94 05/20/25 03:50 103 H 22 H 134/80 94 05/20/25 03:45 101 H 23 H 134/80 93 05/20/25 03:40 101 H 17 131/78 94 05/20/25 03:35 101 H 13 131/78 94 05/20/25 03:30 101 H 15 131/78 94 05/20/25 03:25 99 18 120/76 94 05/20/25 03:20 100 17 120/76 94 05/20/25 03:15 97 13 120/76 95 05/20/25 03:10 95 22 H 143/84 96 05/20/25 03:05 96 19 H 143/84 97 05/20/25 03:00 94 19 H 143/84 98 05/20/25 02:55 92 19 H 97 05/20/25 02:50 96 19 H 97 05/20/25 02:45 96 17 97 05/20/25 02:40 103 H 12 165/104 97 05/20/25 02:35 107 H 17 165/104 95 05/20/25 02:30 100 27 H 165/104 98 05/20/25 02:25 101 H 12 152/99 97 05/20/25 02:20 99 11 L 152/99 96 05/20/25 02:15 98 14 152/99 94 05/20/25 02:11 99 12 152/100 96 05/20/25 01:55 98 10 L 149/94 96 05/20/25 01:50 100 14 149/94 95 05/20/25 01:45 99 12 149/94 94 05/20/25 01:40 96 17 159/95 95 05/20/25 01:35 99 10 L 159/95 94 05/20/25 01:30 101 H 12 159/95 94 05/20/25 01:25 99 28 H 131/99 94 05/20/25 01:20 101 H 12 131/99 95 05/20/25 01:15 104 H 11 L 131/99 93 05/20/25 01:10 101 H 10 L 156/95 94 05/20/25 01:05 100 14 156/95 94 05/20/25 01:00 99 12 156/95 93 05/20/25 00:57 98.4 F 05/20/25 00:55 101 H 18 154/96 94 05/20/25 00:50 100 12 154/96 93 05/20/25 00:45 100 10 L 154/96 92 05/20/25 00:10 106 H 12 175/109 100 Intake & Output/Weight 05/18/25 05/19/25 05/20/25 05/21/25 06:59 06:59 06:59 06:59 Intake Total 2656.666 / 2656.666 1290 / 1290 Output Total 7125 / 7125 Balance -4468.334 / -4468.334 1290 / 1290 Weight 75.296 kg Vitals Last Vital Signs Temp 98.6 F 05/20/25 11:21 Pulse 90 05/20/25 11:21 Resp 14 05/20/25 11:21 BP 112/76 05/20/25 11:21 Pulse Ox 98 05/20/25 11:21 O2 Del Method Room Air 05/20/25 10:10 TS Medications Medications Discontinued Medications Acetaminophen (Acetaminophen 325 Mg Tablet) 650 mg PO Q6H PRN PRN Reason: Mild/Mod Pain Or Temp >/= 101 Al Hydrox/Mg Hydrox/Simethicone (Fuse-Uef-Zrzknchax-Yani 30 Ml Udc) 15 ml PO Q4H PRN PRN Reason: INDIGESTION Amlodipine Besylate (Amlodipine 5 Mg Tablet) 5 mg PO DAILY [facility] Amlodipine Besylate (Amlodipine 5 Mg Tablet) 10 mg PO DAILY [facility] Last Admin: 05/20/25 05:01 Dose: 10 mg Aspirin (Aspirin 81 Mg Ec Tablet) 81 mg PO DAILY [facility] Last Admin: 05/20/25 05:00 Dose: 81 mg Citric Acid/Sodium Citrate (Citric Acid-Sodium Citrate 30 Ml Udc) 30 ml PO Q12H SAMMIE Stop: 05/22/25 18:29 Last Admin: 05/20/25 06:11 Dose: 30 ml Famotidine (Famotidine 20 Mg/2 Ml Inj) 10 mg IVP DAILY [facility] Famotidine (Famotidine 20 Mg/2 Ml Inj) 20 mg IVP ONCE ONE Stop: 05/19/25 19:01 Last Admin: 05/19/25 19:33 Dose: 20 mg Finasteride (Finasteride 5 Mg Tablet) 5 mg PO DAILY [facility] Last Admin: 05/20/25 05:01 Dose: 5 mg Heparin Sodium (Porcine) (Heparin 5,000 Unit/Ml Inj 1 Ml) 5,000 unit SUBCUT Q12H [facility] Last Admin: 05/20/25 00:51 Dose: Not Given Hydralazine HCl (Hydralazine 50 Mg Tablet) 50 mg PO NOW ONE Stop: 05/20/25 00:24 Last Admin: 05/20/25 00:53 Dose: 50 mg Hydralazine HCl (Hydralazine 50 Mg Tablet) 50 mg PO BID [facility] Last Admin: 05/20/25 05:00 Dose: 50 mg Sodium Chloride (Sodium Chloride 0.9%) 1,000 mls @ 999 mls/hr IV .Q1H1M ONE Stop: 05/19/25 13:31 Last Infusion: 05/19/25 14:17 Dose: Infused Sodium Chloride (Sodium Chloride 0.9%) 1,000 mls @ 100 mls/hr IV .Q10H [facility] Last Admin: 05/20/25 09:05 Dose: 150 mls/hr Sodium Bicarbonate 100 meq/ (Dextrose) 350 mls @ 700 mls/hr IV ONCE ONE Stop: 05/19/25 18:52 Last Infusion: 05/19/25 20:33 Dose: Infused Lorazepam (Lorazepam 2 Mg Tablet) 2 mg PO BID PRN PRN Reason: ANXIETY Last Admin: 05/19/25 18:12 Dose: 2 mg Morphine Sulfate (Morphine 4 Mg/Ml Sdv 1 Ml) 2 mg IVP Q4H PRN PRN Reason: SEVERE PAIN Last Admin: 05/19/25 16:02 Dose: 2 mg Nicotine (Nicotine 21 Mg Patch) 1 patch TRANSDERMA DAILY [facility] Last Admin: 05/20/25 05:08 Dose: Not Given Ondansetron HCl (Ondansetron 2 Mg/Ml Sdv 2 Ml) 4 mg IVP Q6H PRN PRN Reason: NAUSEA AND VOMITING Last Admin: 05/19/25 17:04 Dose: 4 mg Ondansetron HCl (Ondansetron 2 Mg/Ml Sdv 2 Ml) 4 mg IVP Q8H PRN PRN Reason: vomiting, or N/V if npo Senna (Sennosides 8.6 Mg Tablet) 17.2 mg PO BEDTIME [facility] Last Admin: 05/19/25 20:02 Dose: 17.2 mg Sodium Polystyrene Sulfonate (Sodium Polystyrene Sulfonate 15 Gm/60 Ml Btl) 15 gm PO ONCE ONE Stop: 05/19/25 12:32 Last Admin: 05/19/25 12:50 Dose: 15 gm Sucralfate (Sucralfate 1 Gm Tablet) 1 gm PO BIDAC [facility] Last Admin: 05/20/25 06:11 Dose: 1 gm Tamsulosin HCl (Tamsulosin 0.4 Mg Capsule) 0.4 mg PO DAILY [facility] Last Admin: 05/20/25 05:01 Dose: 0.4 mg Allergies No Known Allergies Allergy (Verified 11/10/24 18:24) Home Medications tamsulosin 0.4 mg capsule 0.4 mg PO DAILY #90 caps 11/10/24 [Rx Confirmed 05/19/25] amlodipine 5 mg tablet 5 mg PO DAILY hypertension #90 tabs 02/01/25 [Rx Confirmed 05/19/25] aspirin 81 mg tablet,delayed release (Delmy Low Dose Aspirin) 81 mg PO DAILY 05/19/25 [History Confirmed 05/19/25] ibuprofen 200 mg tablet (Advil) 400 mg PO Q6H PRN Fever Or Pain 05/19/25 [History Confirmed 05/19/25] Discharge Plan Discharge Patient Disposition: Xfer Short-Term Hosp Condition: Stable Prescriptions: No Action tamsulosin 0.4 mg capsule 0.4 mg PO DAILY Qty: 90 3RF amlodipine 5 mg tablet 5 mg PO DAILY Qty: 90 0RF aspirin [Delmy Low Dose Aspirin] 81 mg Tablet,Delayed Release (Dr/Ec) 81 mg PO DAILY ibuprofen [Advil] 200 mg Tablet 400 mg PO Q6H PRN (Reason: Fever Or Pain) Discharge Order = DC NOW: Discharge Order (Routine); Ordered 05/20/25 Ordered By: Rico Rapp Discharge Diet: Advance as tolerated and Usual diet Discharge Activity: Resume usual activity Patient Instructions: Opioid Safety, Patient Portal & Yany Instructions Transfer Attestations Time Spent in Transfer Care: critical care time Critical Care Time (min): 45 Specific Discharge Activities: educating patient, educating and/or supporting family/caregiver, discussing with pcp/other providers, discussing with adult protective caseworker/social workers/dc planners, documenting/other paperwork and evaluating patient/reviewing data Status at Transfer: Cognitive status at transfer: cognitively intact ; Behavioral status at transfer: cooperative ; Functional status at transfer: independent ambulation ; Overall status at transfer: patient is not back to baseline Quality Metrics Clinical Quality Measures [ No reported AMI, CVA or VTE this stay] Coding Level of Care Code Critical Care >/= 30 minutes Critical care time (in minutes): 45 The high probability of a clinically significant, sudden or life threatening deterioration, as referenced in this documentation, required my full and direct attention, intervention and personal management. The critical care time shown is in addition to time spent performing any reported separately billable procedures and includes the following: [x] Data and vital sign review and interpretation [x ] Patient assessment, examination and intervention [x] Medication orders and management [x] Patient/Family updates as able [x] Care Coordination and Documentation. Other Coding Information Procedural care (documented in this note), Procedural care (documented in another note), Prolonged care (total time indicated above or notated here), Shared care and Other care Diagnoses Acute kidney injury N17.9
--- NOTE | 2025-05-20 17:58 | P.PN_ITS ---
Subjective 2 Subjective: on room air Medications: Reviewed: Yes Vitals/I&O/Wt Last Vital Signs Temp 98.6 F 05/20/25 11:21 Pulse 90 05/20/25 11:21 Resp 14 05/20/25 11:21 BP 112/76 05/20/25 11:21 Pulse Ox 98 05/20/25 11:21 O2 Del Method Room Air 05/20/25 10:10 05/20/25 05/20/25 05/20/25 06:59 14:59 22:59 Intake Total 363.333 / 2656.666 1290 / 1290 Output Total 3150 / 7125 Balance -2786.667 / -4468.334 1290 / 1290 Weight last 48 hrs Weight 75.296 kg Weight 81.647 kg Physical Exam 2 Narrative: Patient is awake alert, no acute distress No JVD PERRLA S1-S2 regular rate and rhythm Lungs clear bilaterally Abdomen soft nontender Extremities no pedal edema Skin no rash Urinary Catheter Management: Navas: Cath Placed During This Visit: yes Reason for Continuing Indwelling Catheter: Acute Urinary Retention or Obstruction Urinary Catheter Date of Insertion: 05/19/25 Urinary Catheter Time of Insertion: 12:45 Data 05/20/25 04:29 05/20/25 10:10 A&P Assessment and plan 1. Acute kidney injury: Plan: 1. Acute on chronic kidney disease stage IV : Creatinine was 1.3 in November 2023, and noted rising creatinine up to 6 range in October 2024. Now patient has severe KIMBERLEY with a creatinine of 11 and a BUN of 151. I suspect advanced CKD due to chronic obstruction. - Agree with bicarbonate drip, serial BMPs - If no improvement , will discuss initiation of dialysis due to presence of uremic symptoms -CT abd - severe linette hydroureteronephrosis , blood prodicts in bladder , if patient has severe bilateral hydroureteronephrosis on CT, he will benefit from transferring for urology for bilateral nephrostomy tubes. - Avoid IV contrast 2. Metabolic acidosis: Due to renal insufficiency, agree with bicarbonate drip, 3. Hyperkalemia: Mild, improved 4. History of hypertension Patient evaluated using audiovisual cart. Time spent 45 minutes. Discussed with hospitalist. PDMP PDMP Reviewed: Not Reviewed Attestations 2 Medical Necessity Statement*: per [facility] Coding Level of Care Code Acute Code for Chg Fwd Diagnoses Acute kidney injury N17.9
== END 2025-05-20 11:15 | disposition short-term general hospital (02) | DRG 683 ==
LOC: ER 11:04 → ER IP 13:12 → ICU 13:47
PROVIDERS: Hospitalist; Admitting Provider Student in an Organized Health Care Education/Training Program; Emergency Provider Family Medicine; PCP Family Medicine; Visit Provider Student in an Organized Health Care Education/Training Program
DX: N17.9 Acute kidney failure, unspecified (principal); E87.20 Acidosis, unspecified; I12.9 Hypertensive chronic kidney disease with stage 1 through stage 4 chronic kidney disease, or unspecified chronic kidney disease; N32.0 Bladder-neck obstruction; N40.1 Benign prostatic hyperplasia with lower urinary tract symptoms; F17.210 Nicotine dependence, cigarettes, uncomplicated; E87.5 Hyperkalemia; R33.9 Retention of urine, unspecified; N18.9 Chronic kidney disease, unspecified; Z79.82 Long term (current) use of aspirin
CPT/HCPCS: 36415; 51702; 51798; 74176; 76770; 80048; 80053; 81001; 83605; 83690; 85025; 93005; 96372; 96374; 99285; J1644; J2270; J2405; J3490; J7030; J7060; J9999; Q3014

== ENCOUNTER → 2025-06-14 15:12 | Outpatient (BNVA) | payer MEDICAID, SELFPAY | PROVIDERS: PCP Family Medicine; Visit Provider Family Medicine | DX: N17.9 Acute kidney failure, unspecified (principal) | CPT/HCPCS: 80048 ==

== ENCOUNTER 2025-07-17 15:03 | Emergency (ER) | payer OTHER, MEDICAID, SELFPAY ==
--- OUTSIDE RECORDS SUMMARY | 2025-07-17 15:07 | XMS_ITS | Clinical Summary ---
Author Organization [facility] Address [address] 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
--- OUTSIDE RECORDS SUMMARY | 2025-07-17 15:07 | XMS_ITS | Clinical Summary ---
Author Organization [facility], [facility] Address [address] [place] [address] Phone Care Team Providers Care Color Maker Name Role Phone Kortney Nieto MD Primary Care Provider [phone] Encounters Date Type Department Care Team Description 07/09/2025 Telephone [facility], [facility] [address] [place] [address] Kortney Nieto MD 07/09/2025 Telephone [email or web address], [facility] [address] [place] [address] Lexy Varma CMA 06/23/2025 Orders Only [facility], [facility] [address] [place] [address] Kortney Nieto MD Acute nontraumatic kidney injury, not otherwise specified (HCC) 05/28/2025 Orders Only [email or web address], [facility] [address] [place] [address] Kortney Nieto MD Acute nontraumatic kidney injury, not otherwise specified (HCC) 05/24/2025 Telephone [email or web address], [facility] [address] [place] [address] Kortney Nieto MD 05/23/2025 Telephone [email or web address], [facility] [address] [place] [address] Kortney Nieto MD from Last 3 Months Social History Tobacco Use Types Packs/Day Years Used Date Smoking Tobacco: Never Assessed Sex and Gender Information Value Date Recorded Sex Assigned at Not on file Legal Sex Male 5:05 PM EDT Gender Identity Not on file Sexual Orientation Not on file Plan of Treatment Health Maintenance Due Date Last Done Comments Hepatitis B Vaccine (1 of 3 - 19+ 3-dose series) 02/02 Pneumococcal Vaccine: 50+ Years (1 of 2 - PCV) 989 Colorectal Cancer Screening: Annual FOBT 2019 Colorectal Cancer Screening: Colonoscopy 2019 Colorectal Cancer Screening: Sigmoidoscopy 2019 Influenza Vaccine (#1) [address] [place] [address] Plan ([id number]) Care Teams Color Maker Relationship Specialty Start Date End Date Kortney Nieto MD [address] [facility] [address] [place] [id number] PCP - General Nephrology 05/23/25
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
--- OUTSIDE RECORDS SUMMARY | 2025-07-17 15:08 | XMS_ITS | Clinical Summary ---
Author Organization [facility] Address [address] Harp: Epic Prelude ADT LOLY RENTERIA [address] Care Team Providers Care Vp Marketing Name Role Phone Unavailable Primary Care Provider Unavailabl e Allergies No known active allergies Medications amLODIPine (NORVASC) 5 mg tablet Take 5 mg by mouth daily. Active tamsulosin (FLOMAX) 0.4 mg capsule Take 2 Capsules (0.8 mg) by mouth daily after supper. 30 Capsule Active albuterol sulfate HFA 90 mcg/actuation aerosol inhaler Take 2 Puffs by inhalation every 6 hours as needed for Shortness of Breath. 8.5 Gram Active Active Problems Problem Noted Date Diagnosed Date Productive cough 05/21/2025 Gross hematuria 05/21/2025 Bladder outlet obstruction 05/20/2025 Bilateral hydronephrosis 05/20/2025 Acute renal failure superimp osed on stage 4 chronic kidney disease 05/20/2025 Benign prostatic hyperplasia with urinary obstru ction 05/20/2025 HTN (hypertension), benign 05/20/2025 Tobacco use 05/20/2025 Encounters Date Type Department Care Team Description 07/03/2025 External Device Data [facility]STRACTION Provider, Abstract 06/26/2025 External Device Data [facility] Provider, Abstract 06/26/2025 External Device Data [facility] Provider, Abstract 06/26/2025 External Device Data [facility] Provider, Abstract 06/12/2025 External Device Data [facility]STRACTION Provider, Abstract 05/30/2025 Orders Only [facility] [place] [address] [place] [address] Provider, Abstract 05/22/2025 External Device Data [facility] ABSTRACTION Provider, Abstract 05/22/2025 External Device Data [facility]CTION Provider, Abstract 05/22/2025 External Device Data [facility]STRACTION Provider, Abstract 05/20/2025 1:16 PM CDT - 05/23/2025 1:18 PM CDT Hospital Encounter [facility] [address] [place] [address] Maria Isabel Tadeo MD Broughton, MD Angela Bacon Puneet Kaur, MD Khatiwada, MD Brayden Bladder outlet obstruction Discharge Disposition: Home or Self Care 05/20/2025 Travel from Last 3 Months Social History Tobacco Use Types Packs/Day Years Used Date Smoking Tobacco: Former Cigarettes 1 36 S tarted: 1989 Tobacco Cessation:Counseling Given: Not Answered Alcohol Use Standard Drinks/Week Comments Never 0 (1 standard drink = 0.6 oz pur e alcohol) Food Insecurity Answer Date Recorded Do you find you are eating l ess than you should because you can t pay for food? No 05/20/2025 Transportation Needs Answer Date Record ed Have you gone without health care because you didn t have a way to get there? Or worry about transportation for future doctor visits, pickling operator medication, etc.? No 2024 Housing Stability Answer Date Recorded Do you worry you won t have a steady place to sleep or struggle to pay rent or mortgage? No 05/20/2025 Utility Needs Answer Date Recorded Do you have difficulty payin g for utility costs (electric, water or gas bills)? No 05/20/2025 Medication Needs Answer Date Recorded Have you skipped taking medi cation due to cost or worry you can t afford new medications? No 05/20/2025 Feeling Safe Answer Date Recorded Are you in a relationship wi th someone who hurts you emotionally and/or physically? No 05/20/2025 Food Insecurity Answer Date Recorded Patient needs follow up regardin 05/20/2025 Transportation Needs Answer Date Record ed Patient needs follow up regardin 05/20/2025 Utility Needs Answer Date Recorded Patient needs follow up regardin 05/20/2025 Sex and Gender Information Value Date Recorded Sex Assigned at Not on file Legal Sex Male 2:47 PM [employer]US [employer] Gender Identity Not on file Sexual Orientation Not on file Last Filed Vital Signs Vital Sign Reading Time Taken Comments Blood Pressure 123/91 05/23/2025 7:09 AM CDT Pulse 90 05/23/2025 7:09 AM CDT Temperature 36.7 C (98.1 F) 05/23/2025 7:09 AM CDT Respiratory Rate 16 05/23/2025 7:09 AM CDT Oxygen Saturation 100% 05/23/2025 7:09 AM CDT Inhaled Oxygen Concentration - - Weight - - Height - - Body Mass Index - - Plan of Treatment Health Maintenance Due Date Last Done Comments DTAP/TDAP/TD VACCINES (1 - Tdap) 1989 HEPATITIS B VACCINES (1 of 3 - 19+ 3-dose series) 01/23 COLORECTAL SCREENING 2015 Colorectal Cancer Screening 2015 FIT-DNA Q 3 years 2015 FIT/FOBT Q 1 year 2015 Flex Sig/CT Colonography Q 5 years 2015 ZOSTER VACCINE (1 of 2) 02/03/2020 INFLUENZA VACCINE (#1) 2025 Procedures Procedure Name Priority Date/Time Associated Diagnosis Comments RENAL FUNCTION PANEL Routine 05/23/2025 3:00 AM CDT CBC WITH DIFFERENTIAL Routine 05/23/2025 3:00 AM CDT US RENAL Routine 05/22/2025 12:06 PM CDT RENAL FUNCTION PANEL Stat 05/22/2025 8:26 AM CDT CBC WITH DIFFERENTIAL Routine 05/22/2025 8:26 AM CDT RT ASSESS AND TREAT Routine 05/21/2025 2 :44 PM CDT XR CHEST PA OR AP 1 VW Routine 05/21/2025 2:42 PM CDT HEMOGLOBIN AND HEMATOCRIT Timed Study 05/21/2025 11:46 AM CDT FERRITIN Routine 05/21/2025 3:53 AM CDT IRON, TIBC, AND PERCENT SATURATION Routine 05/21/2025 3:53 AM CDT BASIC METABOLIC PANEL Routine 05/21/2025 3:53 AM CDT CBC WITH DIFFERENTIAL Routine 05/21/2025 3:53 AM CDT TYPE AND SCREEN Routine 05/21/2025 3:51 AM CDT EXTRA TUBE (URINE MERAZ) Routine 05/20/2025 8:46 PM CDT URINALYSIS W/REFLEX MICROSCOPIC Routine 05/20/2025 8:46 PM CDT URINE CULTURE Routine 05/20/2025 8:46 PM CDT VITAMIN D 25 HYDROXY Routine 05/20/2025 2:28 PM CDT PROTIME-INR Routine 05/20/2025 2:28 PM CDT CBC WITH DIFFERENTIAL Stat 05/20/2025 2:28 PM CDT COMPREHENSIVE METABOLIC PANEL Stat 05/20/2025 2:28 PM CDT COMPREHENSIVE METABOLIC PANEL Routine 05/20/2025 12:56 PM CDT COMPREHENSIVE METABOLIC PANEL Routine 05/19/2025 12:56 PM CDT from Last 3 Months Results * (ABNORMAL) CBC WITH DIFFERENTIAL (05/23/2025 3:00 AM CDT) Only the most recent of4 resultswithin the time period is included. [facility] WBC 8.1 4.8 - 10.8 K/uL 05/23/2025 3:34 AM CDT [facility] RBC 2.60(L) 4.60 - 6.20 M/uL 05/23/2025 3:34 AM [facility] HEMOGLOBIN 7.0(L) 14.0 - 18.0 g/dL 05/23/2025 3:34 AM [facility] HEMATOCRIT 21.4(L) 41.0 - 53.0 % 05/23/2025 3:34 AM [facility] MCV 82.3(L) 84.0 - 103.0 fL 05/23/2025 3:34 AM [facility] MCH 26.9(L) 27.0 - 34.0 pg 05/23/2025 3:34 AM [facility] MCHC 32.7 30.0 - 35.0 g/dL 05/23/2025 3:34 AM [facility] PLATELETS 210 140 - 440 K/uL 05/23/2025 3:34 AM [facility] MPV 10.3 8.9 - 12.8 fL 05/23/2025 3:34 AM [facility] RDW 15.9(H) 11.0 - 14.5 % 05/23/2025 3:34 AM [facility] RDW-STDEV 48.1 37.0 - 54.0 fL 05/23/2025 3:34 AM [facility] NEUTROPHILS 62 42 - 75 % 05/23/2025 3:34 AM [facility] LYMPHOCYTES 23(L) 24 - 44 % 05/23/2025 3:34 AM [facility] MONOCYTES 12(H) 2 - 10 % 05/23/2025 3:34 AM [facility] EOSINOPHILS 3 0 - 7 % 05/23/2025 3:34 AM [facility] BASOPHILS 1 0 - 1 % 05/23/2025 3:34 AM [facility] IMMATURE GRANULOCYTES 1 0 - 2 % 05/23/2025 3:34 AM [facility] NEUTROPHIL ABSOLUTE 4.96 2.00 - 8.00 K/uL 05/23/2025 3:34 AM [facility] LYMPHOCYTE ABSOLUTE 1.82 1.20 - 4.00 K/uL 05/23/2025 3:34 AM CDT [facility] MONOCYTE ABSOLUTE 0.98(H) 0.10 - 0.60 K/uL 05/23/2025 3:34 AM CDT [facility] EOSINOPHIL ABSOLUTE 0.21 0.00 - 0.70 K/uL 05/23/2025 3:34 AM CDT [facility] BASOPHILS ABSOLUTE 0.04 0.00 - 0.20 K/uL 05/23/2025 3:34 AM CDT [facility] IMMATURE GRANULOCYTES ABSOLUTE 0.04 0.00 - 0.10 K/uL 05/23/2025 3:34 AM T [facility] SMEAR REVIEWED: NA - Not Applicable 05/23/2025 3:34 AM T [facility] Blood Venipuncture / Unknown 05/23/2025 3:00 AM CDT 05/23/2025 3:31 AM CDT Maycol Miller MD HEMATOLOGY ORDERABLES Fi nal Result [facility] CLIA # [id number] [address] [place] [id number] * (ABNORMAL) RENAL FUNCTION PANEL (05/23/2025 3:00 AM CDT) Only the most recent of2 resultswithin the time period is included. SODIUM 135(L) 136 - 145 mmol/L 05/23/2025 4:09 AM T [facility] POTASSIUM 3.8 3.5 - 5.1 mmol/L 05/23/2025 4:09 AM T [facility] CHLORIDE 99 98 - 107 mmol/L 05/23/2025 4:09 AM T [facility] CO2 18(L) 22 - 29 mmol/L 05/23/2025 4:09 AM T [facility] CALCIUM 8.6 8.6 - 10.0 mg/dL 05/23/2025 4:09 AM CDT [facility] BUN 110(H) 6 - 20 mg/dL 05/23/2025 4:09 AM T [facility] CREATININE 8.07(H) 0.67 - 1.17 mg/dL 05/23/2025 4:09 AM CDT [facility] GLUCOSE 97 74 - 99 mg/dL 05/23/2025 4:09 AM T [facility] ALBUMIN 3.3(L) 3.5 - 5.2 g/dL 05/23/2025 4:09 AM T [facility] PHOSPHORUS 7.2(H) 2.5 - 4.5 mg/dL 05/23/2025 4:09 AM T [facility] GFR 7(L) >=60 mL/min/1. 73 sq meter 05/23/2025 4:09 AM T [facility] Comment:eGFR calculated with 2020 CKD-EPI equation. Vegetarian diet, extremely high or low muscle mass, and may affect results. Cystatin C with Glomerular Filtration Rate is a suitable alternative for these patients. ANION GAP 18 9 - 20 mmol/L 05/23/2025 4:09 AM T [facility] Blood Venipuncture / Unknown 05/23/2025 3:00 AM CDT 05/23/2025 3:37 AM CDT us Kraig Soler MD CHEMISTRY ORDERABLES Final R esult [facility] CLIA # [id number] [address] [place] [address] * US RENAL (05/22/2025 12:06 PM CDT) Anatomical Region Laterality Modality Abdomen Ultrasound 05/22/2025 12:0 6 PM CDT Impressions 05/22/2025 1:12 PM CDT IMPRESSION: Please see below. US RENAL, 05/22/2025 12:06 PM Reason For Exam: Other - Please see comments. Diagnosis: See Reason for Exam. COMPARISON: None TECHNIQUE: Multiplanar real-time ultrasonography of the retroperitoneum and urinary tract using meraz-scale imaging, supplemented by color and spectral Doppler as needed. FINDINGS: . Right kidney: The renal contour is slightly lobulated. There is moderate to severe hydronephrosis which extends into the proximal ureter. The etiology of obstruction is not visualized. The right kidney measures 12.7 cm in length. . Left kidney: The renal contour is lobulated. There is moderate to severe hydronephrosis which involves the proximal ureter. The etiology of obstruction is not visualized. Left kidney measures 13.6 cm in length. . Additional comments: None ++++++++++++++++++++ IMPRESSION: Moderate to severe bilateral hydronephrosis likely related to a bladder etiology. Narrative Procedure Note Kb Rodriguez MD - 05/22/2025 IMPRESSION: Please see below. US RENAL, 05/22/2025 12:06 PM Reason For Exam: Other - Please see comments. Diagnosis: See Reason for Exam. COMPARISON: None TECHNIQUE: Multiplanar real-time ultrasonography of the retroperitoneum and urinary tract using meraz-scale imaging, supplemented by color and spectral Doppler as needed. FINDINGS: . Right kidney: The renal contour is slightly lobulated. There is moderate to severe hydronephrosis which extends into the proximal ureter. The etiology of obstruction is not visualized. The right kidney measures 12.7 cm in length. . Left kidney: The renal contour is lobulated. There is moderate to severe hydronephrosis which involves the proximal ureter. The etiology of obstruction is not visualized. Left kidney measures 13.6 cm in length. . Additional comments: None ++++++++++++++++++++ IMPRESSION: Moderate to severe bilateral hydronephrosis likely related to a bladder etiology. Kraig Soler MD ORDERABLES Final Result * XR CHEST PA OR AP 1 VW (05/21/2025 2:42 PM CDT) Anatomical Region Laterality Modality Chest Computed Radiogr aphy 05/21/2025 2:42 PM CDT Impressions 05/21/2025 2:56 PM CDT Impression: No evidence of infiltrates. Narrative 05/21/2025 2:56 PM CDT Exam: XR CHEST PA OR AP 1 VW Date/Time of Exam: 05/21/2025 2:42 PM Reason For Exam: Congestion Diagnosis: See Reason for Exam The heart size is normal. The lungs are clear. No pneumothorax is seen. Procedure Note Oneal Franks MD - 05/21/2025 Exam: XR CHEST PA OR AP 1 VW Date/Time of Exam: 05/21/2025 2:42 PM Reason For Exam: Congestion Diagnosis: See Reason for Exam The heart size is normal. The lungs are clear. No pneumothorax is seen. Impression: No evidence of infiltrates. Maycol Miller MD DIAGNOSTIC IMAGING ORDER MIGNON Final Result * (ABNORMAL) HEMOGLOBIN AND HEMATOCRIT (05/21/2025 11:46 AM CDT) HEMOGLOBIN 7.8(L) 14.0 - 18.0 g/dL 05/21/2025 12:08 PM CDT [facility] HEMATOCRIT 23.6(L) 41.0 - 53.0 % 05/21/2025 12:08 PM CDT [facility] Blood Venipuncture / Unknown 05/21/2025 11:46 AM CDT 05/21/2025 12:01 PM CDT Maycol Miller MD HEMATOLOGY ORDERABLES Fi nal Result [facility] CLIA # [id number] [facility] [address] [address] [place], [place] [address] * (ABNORMAL) IRON, TIBC, AND PERCENT SATURATION (05/21/2025 3:53 AM CDT) IRON 43(L) 59 - 158 ug/dL 05/21/2025 9:46 AM CDT [facility] TIBC 181(L) 250 - 450 ug/dL 05/21/2025 9:46 AM CDT [facility] IRON % SATURATION 24 15 - 60 % 05/21/2025 9:46 AM CDT [facility] Blood Venipuncture / Unknown 05/21/2025 3:53 AM CDT 05/21/2025 4:33 AM CDT Maycol Miller MD CHEMISTRY ORDERABLES Fin al Result Performing Organization Address [facility] Co de Phone Number [facility] CLIA # [id number] [facility] [id number] * FERRITIN (05/21/2025 3:53 AM CDT) Pathologist [facility] FERRITIN 315.4 30.0 - 400.0 ng/mL 05/21/2025 9:41 AM CDT [facility] Blood Venipuncture / Unknown 05/21/2025 3:53 AM CDT 05/21/2025 4:33 AM CDT Maycol Miller MD CHEMISTRY ORDERABLES Fin al Result Performing Organization Address City/[facility]/ZIP Co de Phone Number [facility] CLIA # [id number] [facility] [address] * (ABNORMAL) BASIC METABOLIC PANEL (05/21/2025 3:53 AM CDT) SODIUM 132(L) 136 - 145 mmol/L 05/21/2025 5:31 AM CDT [facility] POTASSIUM 4.2 3.5 - 5.1 mmol/L 05/21/2025 5:31 AM CDT [facility] CHLORIDE 97(L) 98 - 107 mmol/L 05/21/2025 5:31 AM CDT [facility] CO2 19(L) 22 - 29 mmol/L 05/21/2025 5:31 AM T [facility] CALCIUM 8.8 8.6 - 10.0 mg/dL 05/21/2025 5:31 AM T [facility] BUN 121(H) 6 - 20 mg/dL 05/21/2025 5:31 AM T [facility] CREATININE 9.46(H) 0.67 - 1.17 mg/dL 05/21/2025 5:31 AM [facility] GLUCOSE 106(H) 74 - 99 mg/dL 05/21/2025 5:31 AM [facility] GFR 6(L) >=60 mL/min/1. 73 sq meter 05/21/2025 5:31 AM T [facility] Comment:eGFR calculated with 2020 CKD-EPI equation. Vegetarian diet, extremely high or low muscle mass, and may affect results. Cystatin C with Glomerular Filtration Rate is a suitable alternative for these patients. ANION GAP 16 9 - 20 mmol/L 05/21/2025 5:31 AM [facility] Blood Venipuncture / Unknown 05/21/2025 3:53 AM CDT 05/21/2025 4:33 AM CDT us Maria Isabel Tadeo MD CHEMISTRY ORDERABLES Final Resul t [facility] CLIA # [id number] [address] [place] [address] [place] [address] * TYPE AND SCREEN (05/21/2025 3:51 AM CDT) ABO GROUP AB 05/21/2025 5:48 AM T [facility] RH (D) TYPE Positive 05/21/2025 5:48 AM T [facility] ANTIBODY SCREEN Negative 05/21/2025 5:48 AM CDT [facility] Blood Venipuncture / Unknown 05/21/2025 3:51 AM CDT 05/21/2025 4:30 AM CDT Maria Isabel Tadeo MD BLOOD BANK ORDERABLES Edited Res ult - Final Performing Organization Address City/[facility]/ZIP Co de Phone Number [facility] CLIA#[id number] [address] [phone] * EXTRA TUBE (URINE MERAZ) (05/20/2025 8:46 PM CDT) Urine URINE SPECIMEN OBTAINED BY CLEAN CATCH PROCEDURE / Unknown Collection / Unknown 05/20/2025 8:46 PM CDT 05/20/2025 8:56 PM CDT Maria Isabel Tadeo MD URINE ORDERABLES Final Result Performing Organization Address [facility] de Phone Number [facility] CLIA # [id number] [address] [place] [address] * (ABNORMAL) URINALYSIS WITH REFLEX MICROSCOPIC (05/20/2025 8:46 PM CDT) COLOR UA Red(A) Pale to Dark Yellow 05/20/2025 9:15 PM CDT [facility] CLARITY UA Turbid(A) Clear 05/20/2025 9:15 PM CDT [facility] SPECIFIC GRAVITY UA 1.007 1.003 - 1.035 05/20/2025 9:15 PM CDT [facility] PH UA 7.0 5.0 - 8.0 05/20/2025 9:15 PM CDT [facility] LEUKOCYTE ESTERASE UA 2+(A) Negative 05/20/2025 9:15 PM CDT [facility] NITRITE UA Negative Negative 05/20/2025 9:15 PM CDT [facility] PROTEIN UA 2+(A) Negative 05/20/2025 9:15 PM CDT [facility] GLUCOSE UA 3+(A) Negative 05/20/2025 9:15 PM CDT [facility] KETONES UA Unable to Evaluate(A) Negative 05/20/2025 9:15 PM CDT [facility] Comment:MEDICATION/COLOR INT ERFERENCE UROBILINOGEN UA Unable to Evaluate(A) <2.0 mg/dL 05/20/2025 9:15 PM CDT [facility] Comment:MEDICATION/COLOR INT ERFERENCE BILIRUBIN UA Unable to Evaluate(A) Negative 05/20/2025 9:15 PM CDT [facility] Comment:MEDICATION/COLOR INT ERFERENCE BLOOD UA Unable to Evaluate(A) Negative 05/20/2025 9:15 PM CDT [facility] Comment:MEDICATION/COLOR INT ERFERENCE WBC UA 11-25(A) 0 - 2 /hpf 05/20/2025 9:15 PM CDT [facility] RBC UA >100(A) 0 - 2 /hpf 05/20/2025 9:15 PM CDT [facility] BACTERIA UA Negative Negative /hpf 05/20/2025 9:15 PM CDT [facility] Urine URINE SPECIMEN OBTAINED BY CLEAN CATCH PROCEDURE / Unknown Collection / Unknown 05/20/2025 8:46 PM CDT 05/20/2025 8:56 PM CDT us Maria Isabel Tadeo MD URINE ORDERABLES Final Result [facility] CLIA # [id number] [address] [place] [address] [place], [place] [id number] * URINE CULTURE (05/20/2025 8:46 PM CDT) CULTURE No growth 05/22/2025 12:23 PM CDT [facility] Urine URINE SPECIMEN OBTAINED BY CLEAN CATCH PROCEDURE / Unknown Collection / Unknown 05/20/2025 8:46 PM CDT 05/20/2025 8:56 PM CDT us Maycol Miller MD MICROBIOLOGY - GENERAL O RDERABLES Final Result Performing Organization Address [facility] Co de Phone Number [facility] CLIA # [id number] [address] [address] [place] [address] * VITAMIN D 25 HYDROXY (05/20/2025 2:28 PM CDT) VITAMIN D TOTAL (25OH) 36 30 - 100 ng/mL 05/20/2025 5:38 PM CDT [facility] Blood Venipuncture / Unknown 05/20/2025 2:28 PM CDT 05/20/2025 2:35 PM CDT Narrative [facility] - 05/20/2025 5:38 PM CDT Interpretive Data Chart: Deficient: 0 - 20 ng/mL Insufficient: 21 - 29 ng/mL Sufficient: 30 - 100 ng/mL Increased Risk of Hypercalciuria: >100 ng/ml Toxic: >150 ng/ml us Maria Isabel Tadeo MD CHEMISTRY ORDERABLES Final Resul t Performing Organization Address [facility] de Phone Number [facility] CLIA # [id number] [facility] [address] [address] * (ABNORMAL) PROTIME-INR (05/20/2025 2:28 PM CDT) PROTIME 16.0(H) 12.7 - 14.9 Seconds 05/20/2025 2:51 PM CDT [facility] INR 1.2 0.8 - 1.2 05/20/2025 2:51 PM CDT [facility] Blood Venipuncture / Unknown 05/20/2025 2:28 PM CDT 05/20/2025 2:34 PM CDT Narrative [facility] - 05/20/2025 2:51 PM CDT Expected Values for INR: DVT/PE Goal INR 2.5; range 2.0 - 3.0 Valve Replacement Tissue Goal INR 2.5; range 2.0 - 3.0 Valve Replacement Mechanical Goal INR 3.0; range 2.5 - 3.5 POST-AZ Goal INR 2.5; range 2.0 - 3.0 or Goal INR 3.0; range 2.5 - 3.5 Atrial Fibrillation Goal INR 2.5; range 2.0 - 3.0 Ischemic Stroke Goal INR 2.5; range 2.0 - 3.0 us Maria Isabel Tadeo MD HEMATOLOGY ORDERABLES Final Resu lt [facility] CLIA # [id number] [address] [place] [address] * (ABNORMAL) COMPREHENSIVE METABOLIC PANEL (05/20/2025 2:28 PM CDT) Only the most recent of3 resultswithin the time period is included. [facility] SODIUM 137 136 - 145 mmol/L 05/20/2025 3:25 PM CDT [facility] POTASSIUM 4.3 3.5 - 5.1 mmol/L 05/20/2025 3:25 PM CDT [facility] CHLORIDE 100 98 - 107 mmol/L 05/20/2025 3:25 PM CDT [facility] CO2 19(L) 22 - 29 mmol/L 05/20/2025 3:25 PM CDT [facility] CALCIUM 9.0 8.6 - 10.0 mg/dL 05/20/2025 3:25 PM CDT [facility] BUN 129(H) 6 - 20 mg/dL 05/20/2025 3:25 PM CDT [facility] CREATININE 9.68(H) 0.67 - 1.17 mg/dL 05/20/2025 3:25 PM CDT [facility] GLUCOSE 121(H) 74 - 99 mg/dL 05/20/2025 3:25 PM CDT [facility] TOTAL PROTEIN 7.2 6.4 - 8.3 g/dL 05/20/2025 3:25 PM CDT [facility] ALBUMIN 3.3(L) 3.5 - 5.2 g/dL 05/20/2025 3:25 PM CDT [facility] BILIRUBIN TOTAL 0.3 0.0 - 1.0 mg/dL 05/20/2025 3:25 PM CDT [facility] ALKALINE PHOSPHATASE 94 40 - 129 U/L 05/20/2025 3:25 PM CDT [facility] AST 8(L) 10 - 50 U/L 05/20/2025 3:25 PM CDT [facility] ALT 7 <=50 U/L 05/20/2025 3:25 PM CDT [facility] GFR 6(L) >=60 mL/min/1. 73 sq meter 05/20/2025 3:25 PM T [facility] Comment:eGFR calculated with 2020 CKD-EPI equation. Vegetarian diet, extremely high or low muscle mass, and may affect results. Cystatin C with Glomerular Filtration Rate is a suitable alternative for these patients. ANION GAP 18 9 - 20 mmol/L 05/20/2025 3:25 PM T [facility] Blood Venipuncture / Unknown 05/20/2025 2:28 PM CDT 05/20/2025 2:35 PM CDT us Maria Isabel Tadeo MD CHEMISTRY ORDERABLES Final Resul t [facility] CLIA # [id number] Formerly [facility] [address] [place], [place] [id number] from Last 3 Months Insurance [facility] IN[employer]UAL [employer] [id number] [facility] [id number] Advance Directives For more information, please contact: [phone] * Full Code (Latest Code Status on File) Date Activated Date Inactivated Comments 05/20/2025 2:49 PM 05/23/2025 3:19 PM
[2025-07-17 15:12] VITALS: BP 152/83; PULSE 97; RESP 17; TEMP 36.8; O2SAT 98; BMI 23.0
--- NOTE | 2025-07-17 15:39 | ED_ITS ---
Documented by User: MARIE Faustin 07/17/25 17:05 HPI - Male Genitourinary 2 General: Chief complaint: Urogenital-Male Stated complaint: needs cath change Time Seen by Provider: 07/17/25 15:23 Source: patient Mode of arrival: ambulatory Limitations: no limitations History of Present Illness: Patient is a 55-year-old male with past medical history of BPH with urinary obstruction who presents the emergency department for evaluation. He was at primary care office earlier today, sent over due to him having Navas catheter in for the past 6-week without being changed, and for repeat lab evaluation. The patient had the Navas catheter placed due to urinary retention, and has not followed up with his urologist at [facility] since. He had been admitted back in April for acute urinary retention and severe kidney injury with elevated creatinine 9.6, then subsequently transferred to [facility]rological [facility] at that time, catheter placed in the ER here prior to that transfer. States that he has continued to make urine appropriately, has been draining into leg bag and he has been changing it regularly. Denies any fever, chills, nausea/vomiting, or any other systemic symptoms of illness. No lower abdominal pain or distention. His vitals are stable at this time. Patient has no symptoms. MD Complaint: other (Evaluation of Navas catheter, repeat labs, sent from PCP) Onset (ago): week(s) (6) Associated symptoms: Deny dysuria, nausea or vomiting Related Data Home Medications ?Medication ?Instructions ?Recorded ?Confirmed aspirin 81 mg tablet,delayed 81 mg PO DAILY 05/19/25 1 09/17/24 release (Delmy Low Dose Aspirin) ciprofloxacin HCl 500 mg tablet 500 mg PO BID 07/17/25 07/17/25 Previous Rx's ?Medication ?Instructions ?Recorded tamsulosin 0.4 mg capsule 0.4 mg PO DAILY #90 caps amlodipine 5 mg tablet 5 mg PO DAILY hypertension # 90 tabs 06/14/25 Allergies Allergy/AdvReac Type Severity Reaction Status Date / Time ciprofloxacin (From Cipro) Allergy Intermediate Hives Verified 07/17/25 14:20 Review of Systems 2 General: Reports: 10 or more systems reviewed and unremarkable except in HPI and below Const: Denies: fever(s), chills, change in appetite, change in weight or diaphoresis ENMT: Denies: throat pain or hoarseness Card: Denies: chest pain, palpitations or lightheadedness Resp: Denies: dyspnea, productive cough or wheezing GI: Denies: abdominal pain, nausea, vomiting, diarrhea, constipation, bloating, change in stool character or hematochezia : Reports: other (Present for evaluation of Navas catheter); Denies: flank pain, difficulty urinating, dysuria, urinary frequency or urinary urgency Musc: Denies: neck pain or back pain Skin/Breast: Denies: rash or new lesions Neuro: Denies: headache(s) or dizziness PFSH ED 2 PFSH: Medical History Bladder wall thickening seen on CT 12/16; gone on 12/[address] 2023 Nicotine dependence, cigarettes, with other nicotine-induced disorders declined LDCT 4.18.25 Acute kidney injury Creatinine was 2.9 with GFR of 22 on 11/26/2023 and had decreased to a creatinine of 1.3 with a GFR of 58 on 12/01/2023 Primary hypertension Acute urinary retention Urinary Navas placement with 3000 cc return on 11/26/2023 BPH w urinary obs/LUTS Surgical History No pertinent past surgical history Family History Father No problems noted. 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 Physical Exam 2 Const: COMMON NORMALS: no acute distress, average body habitus, patient oriented x3, no limitations, healthy appearing, alert and well nourished G ENERAL APPEARANCE: cooperative and comfortable ORIENTATION/CONSCIOUSNESS: Yes awake Resp: COMMON NORMALS: normal respiratory effort, No retractions, No use of accessory muscles and clear to auscultation bilaterally AUSCULTATION: clear to auscultation bilaterally, no crackles, no rales, no rhonchi and no wheezes Cardio: COMMON NORMALS: regular rate, regular rhythm, No gallops present (Cardio), No clicks present (Cardio), No murmurs present (Cardio) and No rub (Cardio) RATE: regular rate RHYTHM: regular rhythm GI: COMMON NORMALS: Normal to inspection, nondistended, normoactive bowel sounds present, Soft to palpation, non-tender, No hepatosplenomegaly present and no masses AUSCULTATION: Yes normoactive bowel sounds PALPATION: Yes Soft to palpation, No Guarding due to palpation present (GI), No Rigid due to palpation and Yes No hepatosplenomegaly present RECTAL EXAM: Yes deferred : COMMON NORMALS: Yes no CVA tenderness BLADDER/KIDNEY EXAM: Yes no CVA tenderness OTHER: Navas catheter present draining light-colored urine into leg bag Back/Pelvis: COMMON NORMALS: no CVA tenderness Extremity: COMMON NORMALS: normal to inspection and full ROM Neuro: COMMON NORMALS: patient oriented x3, moves all extremities, no focal motor deficits and no sensory deficits noted SENSORIUM/ORIENTATION: Yes alert Psych: COMMON NORMALS: mental status grossly normal, cooperative and speech normal SPEECH: Yes normal speech Skin: COMMON NORMALS: no rashes or lesions noted GENERAL SKIN EXAM: no rashes or lesions noted Course 2 Vital Signs: Vital signs: Vital Signs Temperature 98.3 F 07/17/25 15:12 Pulse Rate 95 07/17/25 16:55 Respiratory Rate 16 07/17/25 16:55 Blood Pressure 139/93 07/17/25 16:55 Pulse Oximetry 98 07/17/25 16:55 Oxygen Delivery Me thod Room Air 07/17/25 16:55 MDM - Male Medical Decision Making This patient presented, referred by his primary care's office, for evaluation of his indwelling Navas catheter. This patient had transferred to [facility] for urological services at the end of April of this year due to acute urinary retention, he was found to have acute kidney injury at that time and the catheter has been present since without being evaluated by urology. He is asymptomatic, however was also referred for reevaluation of his labs, specifically checking his kidney function. He states that he has been making urine without difficulty, his creatinine shows improvement here down to 5.1 from his previous of 5.8. He has no electrolyte derangements, and urine does not have concerning infectious parameters as likely the white blood cells and red blood cells are from polyuria of the indwelling catheter. The catheter is replaced here in the emergency department with new leg bag being placed, this is without complication. He was nontoxic-appearing overall, he does have upcoming appointment with urology, actually at [facility] in [place] and not [facility], which he is appropriate to attend as an outpatient at this time. Patient agrees with discharge plan, return precautions given. Lab Data 07/17/25 15:38 07/17/25 15:38 Laboratory Results WBC 9.39 10^3/uL (3.29-11.43) 07/17/25 15:38 RBC 3.54 10^6/uL (3.85-5.65) L 07/17/25 15:38 Hgb 9.60 g/dL (11.27-16.99) L 07/17/25 15:38 Hct 31.4 % (37-53) L 07/17/25 15:38 MCV 88.7 fl (82-101) 07/17/25 15:38 MCH 27.1 pg (27-33) 07/17/25 15:38 MCHC 30.6 g/dL (30-55) 07/17/25 15:38 RDW 15.7 % (12.1-15.1) H 07/17/25 15:38 Plt Count 265 10^3/cmm (157-399) 07/17/25 15:38 MPV 9.5 fL (7.4-10.4) 07/17/25 15:38 Neut % (Auto) 66.8 % 07/17/25 15:38 Lymph % (Auto) 20.3 % 07/17/25 15:38 [place] % (Auto) 8.8 % 07/17/25 15:38 Eos % (Auto) 2.8 % 07/17/25 15:38 Baso % (Auto) 0.9 % 07/17/25 15:38 Neut # (Auto) 6.27 10^3/uL (1.8-7.7) 07/17/25 15:38 Lymph # (Auto) 1.9 10^3/uL (0.8-4.8) 07/17/25 15:38 [place] # (Auto) 0.8 10^3/uL (0.2-0.9) 07/17/25 15:38 Eos # (Auto) 0.3 10^3/uL (0.0-0.8) 07/17/25 15:38 Baso # (Auto) 0.1 10^3/uL (0.0-0.1) 07/17/25 15:38 Nucleated RBC % (auto) 0 % 07/17/25 15:38 Nucleated RBCs # 0.0 /100WBC 07/17/25 15:38 Sodium 140 mmol/L (136-145) 07/17/25 15:38 Potassium 4.5 mmol/L (3.5-5.1) 07/17/25 15:38 Chloride 105 mmol/L (98-107) 07/17/25 15:38 Carbon Dioxide 20 mmol/L (22-29) L 07/17/25 15:38 Anion Gap 19.5 (5-19) H 07/17/25 15:38 BUN 65 mg/dL (6-20) H 07/17/25 15:38 Creatinine 5.1 mg/dL (0.7-1.2) H 07/17/25 15:38 GFR Calculation 11.8 mL/min (90-130) L 07/17/25 15:38 Glucose 120 mg/dL (65-115) H 07/17/25 15:38 Calculated Osmolality 310 mOsm/kg (285-295) H 07/17/25 15:38 Calcium 9.3 mg/dL (8.5-10.5) 07/17/25 15:38 Total Bilirubin 0.2 mg/dL (0.15-1.2) 07/17/25 15:38 AST 21 U/L (0-40) 07/17/25 15:38 ALT 12 U/L (0-41) 07/17/25 15:38 Alkaline Phosphatase 118 U/L (40-130) 07/17/25 15:38 Total Protein 7.3 g/dL (6.6-8.7) 07/17/25 15:38 Albumin 3.8 g/dL (3.5-5.2) 07/17/25 15:38 Globulin 3.5 g/dL (1.3-4.6) 07/17/25 15:38 Urine Color Yellow (Yellow) 07/17/25 16:20 Urine Appearance Cloudy (CLEAR) A 07/17/25 16:20 Urine pH 7.0 (5-7) 07/17/25 16:20 Ur Specific [place] 1.009 (1.005-1.030) 07/17/25 16:20 Urine Protein 1+ (Negative) A 07/17/25 16:20 Urine Glucose (UA) Negative (Normal) 07/17/25 16:20 Urine Ketones Negative (Negative) 07/17/25 16:20 Urine Blood 2+ (Negative) A 07/17/25 16:20 Urine Nitrate Negative (Negative) 07/17/25 16:20 Urine Bilirubin Negative (Negative) 07/17/25 16:20 Urine Urobilinogen 0.2 mg/dL (Negative) 07/17/25 16:20 Ur Leukocyte Esterase 3+ (Negative) A 07/17/25 16:20 Urine RBC 11-20 /hpf (0-2) H 07/17/25 16:20 Urine WBC >100 /hpf (0-5) H 07/17/25 16:20 Ur Squamous Epith Cells 0-5 /hpf (0-5) 07/17/25 16:20 Amorphous Sediment Not Reportable 07/17/25 16:20 Urine Bacteria None seen /hpf (NONE) 07/17/25 16:20 Hyaline Casts 1.21 /lpf 07/17/25 16:20 No radiology studies performed this visit Discharge Plan Discharge Patient Disposition: Home Clinical Impression: Encounter for Navas catheter replacement Condition: Stable Prescriptions: No Action amlodipine 5 mg tablet 5 mg PO DAILY Qty: 90 0RF tamsulosin 0.4 mg capsule 0.4 mg PO DAILY Qty: 90 3RF aspirin [Delmy Low Dose Aspirin] 81 mg Tablet,Delayed Release (Dr/Ec) 81 mg PO DAILY ciprofloxacin HCl 500 mg tablet 500 mg PO BID Discharge Orders: Discharge ED (Routine); Ordered 07/17/25 Ordered By: Josef Mahan Referrals: Savannah García DO [Primary Care Provider, Family Practice] Patient Instructions: Patient Portal & Yany Instructions Activity Restrictions/Additional Instructions: Navas Catheter Discharge Instructions Catheter Care at Home Your Navas catheter was replaced today with a new leg bag. Follow these instructions to care for your catheter and prevent complications: Daily Catheter Care - Clean the catheter and the area where it enters your body with soap and water once daily - Keep the catheter bag below the level of your bladder at all times to help drainage and prevent infection - Check the catheter tubing throughout the day to make sure it is not kinked or twisted - Drink plenty of fluids (unless your doctor tells you otherwise) to keep urine flowing and prevent blockage - Secure the catheter to your leg with the leg strap to prevent pulling or movement Watch for These Problems Contact your urologist's office if you notice: - Urine leaking around the catheter - No urine draining into the bag for several hours - Cloudy or foul-smelling urine - Mild to moderate pain or discomfort that gets worse or doesn't improve - Fever or chills - Blood in the urine (small amounts may be normal after catheter change) Go to the Emergency Department immediately if you have: - Severe pain - Heavy bleeding from where the catheter enters your body - Sudden inability to urinate after the catheter is removed - Signs of infection with high fever Preventing Constipation Constipation can put pressure on your bladder and affect how your catheter works. Eat high-fiber foods, drink plenty of water, and talk to your doctor if you have trouble having bowel movements. Follow-Up Care - Continue to follow up with your urologist as planned - Your kidney function is improving and will continue to be monitored - Your catheter should typically be changed every 4 weeks, but your urologist may recommend a different schedule based on your individual needs Questions? If you have any questions or concerns about your catheter care, contact your urologist's office. Print Language: Cameroonian Coding Level of Care Code ED Mathematics Academic Chair for g Fwd Documented by User: Tariq Sommer DO 07/20/25 22:08 HPI - Male Genitourinary 2 General: Chief complaint: Urogenital-Male Stated complaint: needs cath change Time Seen by Provider: 07/17/25 15:23 Related Data Home Medications ?Medication ?Instructions ?Recorded ?Confirmed aspirin 81 mg tablet,delayed 81 mg PO DAILY 05/19/25 1 09/17/24 release (Delmy Low Dose Aspirin) ciprofloxacin HCl 500 mg tablet 500 mg PO BID 07/17/25 07/17/25 Previous Rx's ?Medication ?Instructions ?Recorded tamsulosin 0.4 mg capsule 0.4 mg PO DAILY #90 caps amlodipine 5 mg tablet 5 mg PO DAILY hypertension # 90 tabs 06/14/25 Allergies Allergy/AdvReac Type Severity Reaction Status Date / Time ciprofloxacin (From Cipro) Allergy Intermediate Hives Verified 07/17/25 14:20 PFSH ED 2 PFSH: Medical History Bladder wall thickening seen on CT 12/16; gone on 12/[address] 2023 Nicotine dependence, cigarettes, with other nicotine-induced disorders declined LDCT 4.. Acute kidney injury Creatinine was 2.9 with GFR of 22 on 11/26/2023 and had decreased to a creatinine of 1.3 with a GFR of 58 on 12/01/2023 Primary hypertension Acute urinary retention Urinary Navas placement with 3000 cc return on 11/26/2023 BPH w urinary obs/LUTS Surgical History No pertinent past surgical history Family History Father No problems noted. 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 This patient had transferred to [facility] for urological services at the end of April of this year due to acute urinary retention, he was found to have acute kidney injury at that time and the catheter has been present since without being evaluated by urology. He is asymptomatic, however was also referred for reevaluation of his labs, specifically checking his kidney function. He states that he has been making urine without difficulty, his creatinine shows improvement here down to 5.1 from his previous of 5.8. He has no electrolyte derangements, and urine does not have concerning infectious parameters as likely the white blood cells and red blood cells are from polyuria of the indwelling catheter. The catheter is replaced here in the emergency department with new leg bag being placed, this is without complication. He was nontoxic-appearing overall, he does have upcoming appointment with urology, actually at [facility] in [place] and not [facility], which he is appropriate to attend as an outpatient at this time. Patient agrees with discharge plan, return precautions given. Chart reviewed Lab Data 07/17/25 15:38 07/17/25 15:38 Laboratory Results WBC 9.39 10^3/uL (3.29-11.43) 07/17/25 15:38 RBC 3.54 10^6/uL (3.85-5.65) L 07/17/25 15:38 Hgb 9.60 g/dL (11.27-16.99) L 07/17/25 15:38 Hct 31.4 % (37-53) L 07/17/25 15:38 MCV 88.7 fl (82-101) 07/17/25 15:38 MCH 27.1 pg (27-33) 07/17/25 15:38 MCHC 30.6 g/dL (30-55) 07/17/25 15:38 RDW 15.7 % (12.1-15.1) H 07/17/25 15:38 Plt Count 265 10^3/cmm (157-399) 07/17/25 15:38 MPV 9.5 fL (7.4-10.4) 07/17/25 15:38 Neut % (Auto) 66.8 % 07/17/25 15:38 Lymph % (Auto) 20.3 % 07/17/25 15:38 [place] % (Auto) 8.8 % 07/17/25 15:38 Eos % (Auto) 2.8 % 07/17/25 15:38 Baso % (Auto) 0.9 % 07/17/25 15:38 Neut # (Auto) 6.27 10^3/uL (1.8-7.7) 07/17/25 15:38 Lymph # (Auto) 1.9 10^3/uL (0.8-4.8) 07/17/25 15:38 [place] # (Auto) 0.8 10^3/uL (0.2-0.9) 07/17/25 15:38 Eos # (Auto) 0.3 10^3/uL (0.0-0.8) 07/17/25 15:38 Baso # (Auto) 0.1 10^3/uL (0.0-0.1) 07/17/25 15:38 Nucleated RBC % (auto) 0 % 07/17/25 15:38 Nucleated RBCs # 0.0 /100WBC 07/17/25 15:38 Sodium 140 mmol/L (136-145) 07/17/25 15:38 Potassium 4.5 mmol/L (3.5-5.1) 07/17/25 15:38 Chloride 105 mmol/L (98-107) 07/17/25 15:38 Carbon Dioxide 20 mmol/L (22-29) L 07/17/25 15:38 Anion Gap 19.5 (5-19) H 07/17/25 15:38 BUN 65 mg/dL (6-20) H 07/17/25 15:38 Creatinine 5.1 mg/dL (0.7-1.2) H 07/17/25 15:38 GFR Calculation 11.8 mL/min (90-130) L 07/17/25 15:38 Glucose 120 mg/dL (65-115) H 07/17/25 15:38 Calculated Osmolality 310 mOsm/kg (285-295) H 07/17/25 15:38 Calcium 9.3 mg/dL (8.5-10.5) 07/17/25 15:38 Total Bilirubin 0.2 mg/dL (0.15-1.2) 07/17/25 15:38 AST 21 U/L (0-40) 07/17/25 15:38 ALT 12 U/L (0-41) 07/17/25 15:38 Alkaline Phosphatase 118 U/L (40-130) 07/17/25 15:38 Total Protein 7.3 g/dL (6.6-8.7) 07/17/25 15:38 Albumin 3.8 g/dL (3.5-5.2) 07/17/25 15:38 Globulin 3.5 g/dL (1.3-4.6) 07/17/25 15:38 Urine Color Yellow (Yellow) 07/17/25 16:20 Urine Appearance Cloudy (CLEAR) A 07/17/25 16:20 Urine pH 7.0 (5-7) 07/17/25 16:20 Ur Specific [place] 1.009 (1.005-1.030) 07/17/25 16:20 Urine Protein 1+ (Negative) A 07/17/25 16:20 Urine Glucose (UA) Negative (Normal) 07/17/25 16:20 Urine Ketones Negative (Negative) 07/17/25 16:20 Urine Blood 2+ (Negative) A 07/17/25 16:20 Urine Nitrate Negative (Negative) 07/17/25 16:20 Urine Bilirubin Negative (Negative) 07/17/25 16:20 Urine Urobilinogen 0.2 mg/dL (Negative) 07/17/25 16:20 Ur Leukocyte Esterase 3+ (Negative) A 07/17/25 16:20 Urine RBC 11-20 /hpf (0-2) H 07/17/25 16:20 Urine WBC >100 /hpf (0-5) H 07/17/25 16:20 Ur Squamous Epith Cells 0-5 /hpf (0-5) 07/17/25 16:20 Amorphous Sediment Not Reportable 07/17/25 16:20 Urine Bacteria None seen /hpf (NONE) 07/17/25 16:20 Hyaline Casts 1.21 /lpf 07/17/25 16:20 Discharge Plan Discharge Patient Disposition: Home Clinical Impression: Encounter for Navas catheter replacement Condition: Stable Prescriptions: No Action amlodipine 5 mg tablet 5 mg PO DAILY Qty: 90 0RF tamsulosin 0.4 mg capsule 0.4 mg PO DAILY Qty: 90 3RF aspirin [Delmy Low Dose Aspirin] 81 mg Tablet,Delayed Release (Dr/Ec) 81 mg PO DAILY ciprofloxacin HCl 500 mg tablet 500 mg PO BID Discharge Orders: Discharge ED (Routine); Ordered 07/17/25 Ordered By: Josef Mahan Referrals: Savannah García DO [Primary Care Provider, Family Practice] Patient Instructions: Patient Portal & Yany Instructions Activity Restrictions/Additional Instructions: Navas Catheter Discharge Instructions Catheter Care at Home Your Navas catheter was replaced today with a new leg bag. Follow these instructions to care for your catheter and prevent complications: Daily Catheter Care - Clean the catheter and the area where it enters your body with soap and water once daily - Keep the catheter bag below the level of your bladder at all times to help drainage and prevent infection - Check the catheter tubing throughout the day to make sure it is not kinked or twisted - Drink plenty of fluids (unless your doctor tells you otherwise) to keep urine flowing and prevent blockage - Secure the catheter to your leg with the leg strap to prevent pulling or movement Watch for These Problems Contact your urologist's office if you notice: - Urine leaking around the catheter - No urine draining into the bag for several hours - Cloudy or foul-smelling urine - Mild to moderate pain or discomfort that gets worse or doesn't improve - Fever or chills - Blood in the urine (small amounts may be normal after catheter change) Go to the Emergency Department immediately if you have: - Severe pain - Heavy bleeding from where the catheter enters your body - Sudden inability to urinate after the catheter is removed - Signs of infection with high fever Preventing Constipation Constipation can put pressure on your bladder and affect how your catheter works. Eat high-fiber foods, drink plenty of water, and talk to your doctor if you have trouble having bowel movements. Follow-Up Care - Continue to follow up with your urologist as planned - Your kidney function is improving and will continue to be monitored - Your catheter should typically be changed every 4 weeks, but your urologist may recommend a different schedule based on your individual needs Questions? If you have any questions or concerns about your catheter care, contact your urologist's office. Print Language: Cameroonian Coding Level of Care Code ED Mathematics Academic Chair for Fili Rawls
[2025-07-17 15:45] LABS: Hematocrit 31.4 % (37-53); Hemoglobin 9.60 g/dL (11.27-16.99); Mean Corpuscular HGB Conc 30.6 g/dL (30-55); Mean Corpuscular Hemoglobin 27.1 pg (27-33); Mean Corpuscular Volume 88.7 fl (82-101); Nucleated Red Blood Cells % 0 %; Platelet Count 265 10^3/cmm (157-399); Red Blood Count 3.54 10^6/uL (3.85-5.65); White Blood Count 9.39 10^3/uL (3.29-11.43)
[2025-07-17 16:04] LABS: Alanine Aminotransferase 12 U/L (0-41); Albumin Level 3.8 g/dL (3.5-5.2); Alkaline Phosphatase 118 U/L (40-130); Anion Gap 19.5 (5-19); Aspartate Amino Transferase 21 U/L (0-40); Blood Urea Nitrogen 65 mg/dL (6-20); Calcium 9.3 mg/dL (8.5-10.5); Carbon Dioxide 20 mmol/L (22-29); Chloride 105 mmol/L (98-107); Globulin 3.5 g/dL (1.3-4.6); Glucose 120 mg/dL (65-115); Osmolality Calculated 310 mOsm/kg (285-295); Potassium 4.5 mmol/L (3.5-5.1); Sodium 140 mmol/L (136-145); Total Protein 7.3 g/dL (6.6-8.7)
[2025-07-17 16:43] LABS: Glucose Urine UA Negative (Normal); Nitrate Urine Negative (Negative); Specific Gravity, Urine 1.009 (1.005-1.030)
[2025-07-17 16:48] LABS: Add Urine Microscopic? YES
[2025-07-17 16:55] VITALS: BP 139/93; PULSE 95; RESP 16; O2SAT 98
== END 2025-07-17 17:11 | disposition home or self-care (01) ==
PROVIDERS: Emergency Provider Physician Assistant; PCP Family Medicine
DX: Z46.6 Encounter for fitting and adjustment of urinary device (principal); F17.210 Nicotine dependence, cigarettes, uncomplicated; I10 Essential (primary) hypertension
CPT/HCPCS: 36415; 51702; 80053; 81001; 85025; 87077; 87086; 87186; 99283